=== PATIENT | female | born 1980 | race Caucasian/White ===

== ENCOUNTER 2019-03-21 06:36 | Day surgery (SDC) | payer OTHER, SELFPAY ==
[2019-03-19 08:01] VITALS: BMI 35.6
[2019-03-21] VITALS (19 sets, daily range): BP systolic 97–144; BP diastolic 37–88; PULSE 58–95; RESP 12–26; TEMP 36.3–37.1; O2SAT 95–100; BMI 35.6
--- NOTE | 2019-03-21 | PATH_ITS ---
[facility] Accession Number: [id number] . 01 Material submitted: . uterus - UTERUS AND BILATERAL FALLOPIAN TUBES . 02 Diagnosis: Uterus and Bilateral Fallopian Tubes, Supracervical Hysterectomy and Bilateral Salpingectomy: Proliferative endometrium with no diagnostic abnormality. Myometrium with no diagnostic abnormality. Bilateral fimbriated fallopian tubes with simple benign paratubal cysts. No evidence of neoplasm. MRV 03/25/2019 1312 Local . 02 Electronically signed: . Frederick Denise MD, PhD, Pathologist NPI- [id number] . 01 Gross description: . Received in formalin, labeled uterus + bilateral fallopian tubes, is an upper uterine body in multiple pieces (46 grams, 6.5 x 5.4 x 3.0 cm in aggregate) and two detached fimbriated fallopian tubes (tube #1: length-4.7 cm, diameter-0.4 cm; tube #2: length-5.5 cm, diameter-0.3 cm). The cervix and ovaries are absent. The specimen cannot be oriented and the endometrium and myometrium cannot be grossly measured. The parenchyma is mack and unremarkable. The serosa is pale mack smooth and shiny. The fallopian tubes have mack-zamorano smooth shiny serosa and mack unremarkable lumens. Section code: (A1-A4) uterine parenchyma, client service representative; (A5) fallopian tube #1, client service representative serial sections; (A6) fimbria #1, bivalved, entirely submitted; (A7)fallopian tube #2, client service representative serial sections; (A8) fimbria #2, bivalved, entirely submitted. ([id number]) /MRV 03/22/2019 1341 Local . 02 Pathologist provided ICD-10: N92.0, N94.6 . 02 [facility] . [id number] Performed at: 01 [facility] [address] [id number] MD Erick Davidson MD Phone: [phone] Performed at: 02 [facility] [address] [place], [place] [id number] MD Carin Gilman MD Phone: [phone]
--- NOTE | 2019-03-21 07:46 | PM.PREOP ---
Pre-operative Note Interval Note History & Physical reviewed/Exam performed by Physician: Yes Changes to H&P: No
[2019-03-21] MEDS: CEFAZOLIN 2 GM/100 ML FROZ.PIGGY IV (08:06)
--- NOTE | 2019-03-21 08:47 | SUR.OPER ---
Lithotomy on padded OR bed. [place] Pad Positioner under torso. Head on pillow, arms padded and tucked at sides. Legs secured in padded yellow fins stirrups.
[2019-03-21] MEDS: BUPIVACAINE 0.5% W/ EPI (PF) VIAL 30 ML INJ (09:07)
[2019-03-21] MEDS: ROPIVACAINE 0.2% PF 2 MG/ML 10ML AMP 10 ML INJ (09:08)
[2019-03-21] MEDS: LACTATED RINGERS 1,000 ML 42 ML IV (09:52)
[2019-03-21] MEDS: LORazepam 2 MG/ML INJ 0.25 MG IV ×4 (10:09→10:37)
[2019-03-21] MEDS: HYDROMORPHONE 2 MG INJ 0.25 MG IV ×4 (10:10→10:39)
[2019-03-21] MEDS: fentaNYL 100 MCG/2 ML INJ 50 MCG IV ×2 (10:16→10:24)
--- NOTE | 2019-03-21 10:47 | SUR.PHASEI ---
Patient arrived in PACU crying and complaining of 10/10 pain. Dressing site is CDI
--- NOTE | 2019-03-21 11:10 | SUR.OPER ---
SOFTBALL SIZED BRUISE LEFT THIGH NOTED PREOPERATIVELY. LATE ENTRY
[2019-03-21] MEDS: LACTATED RINGERS 1,000 ML 100 ML IV (12:02)
[2019-03-21] MEDS: HYDROMORPHONE 2 MG TABLET PO ×4 (12:06→21:17)
--- NOTE | 2019-03-21 13:59 | PC.NURSE ---
Addendum entered by Patricia Torres R.N. 03/21/19 14:44: PAIN/ - per call from Dr. Grey, no holder, order cancelled, continue with po dilaudid, may give a little early, pt abd discomfort now 5 on scale 0/10, appears less restless and anxious at this time, given 2mg po dilaudid. Addendum entered by Patricia Torres R.N. 03/21/19 14:14: PAIN/ - msg left with Dr. Grey's RN re pain management and the order for holder. Addendum entered by Patricia Torres R.N. 03/21/19 14:03: Original Note: POST OP ARRIVAL 1200 - arrived via [place], pt is anxious and tearful, wincing with touch or movement, abd cramping discomfort and vaginal burning sensation 6-7 on scale 0/10, denies nausea , 2x2 w/op site x4, lower abd, pelvic does have some shadow drainage, no leakage, per PRODUCT MANAGEMENT INTERN, an in/out cath was performed prior to tsf w/200 ml, started with ice chips and when alert and safe to swallow, given 2mg po dilaudid, later pt able to tsf to bsc and voided 600ml yellow, cloudy urine, ret to bed, scd on, LR at 100/hr.
--- NOTE | 2019-03-21 15:34 | PM.GYNOP.1 ---
Operative Date/Time/Diagnoses Date of procedure: 03/21/19 Time of procedure: 10:15 Pre-op diagnosis: Menorrhagia Dysmenorrhea Post-op diagnosis: same Procedure & Clinicians Procedure: Procedures Operation Date: 03/21/19 07:45 Actual Procedures Side Surgeon p Laparoscopic Supracervical Hysterectomy w/bilateral salpingectomy Not Applicable Araceli Grey MD Indications: Menorrhagia Dysmenorrhea Surgeon: Araceli Grey Concrete Hopper Operator: Jersey Ramires Anesthesia Type: General Operative Notes Findings: 10 week size uterus Normal tubes and ovaries Closure Type: primary Specimen(s): left tube, right tube and uterus Applied: catheter (Removed at the end of the case) Estimated blood loss (mL): 75 Blood products transfused: none Procedure in detail: The patient was taken to the operating room where she was placed in the dorsal supine position. After adequate general endotracheal anesthesia was achieved, she was placed in the dorsal lithotomy position, and prepped and draped in the usual sterile fashion. A timeout was performed. A bivalve speculum was placed into the vagina and the anterior lip of the cervix grasped with a single-tooth tenaculum. The cervical os was sequentially dilated until the ZUMI uterine manipulator could pass easily into the endometrial cavity. The single-tooth tenaculum was removed from the anterior lip of the cervix, and the bivalve speculum was removed from the vagina. Attention was then turned to the abdomen where 6 mL of half percent Marcaine with epinephrine were injected in the umbilical fold. A 5 mm incision was made. The long Verhees needle was placed into the peritoneal cavity, and its placement confirmed by aspiration and drop test. The Verhees needle was removed. A 5 mm trocar was placed without difficulty. 2 other incisions were made midway between the pubic symphysis and umbilicus after 5 mL of half percent Marcaine with epinephrine were injected. These were 5 mm incisions. Two lawn 5 mm trochars were placed under direct visualization. The right tube was grasped with an atraumatic grasper. Using the plasma kinetic with settings of 40 W the mesosalpinx was cauterized and cut all the way down to the cornua of the uterus. The cornua of the uterus was then grasped with an atraumatic grasper. The utero-ovarian ligaments were cauterized and cut. The round ligament and broad ligament was cauterized and cut with plasma kinetic. Hemostasis was achieved. The bladder flap was created using the plasma kinetic with cautery and cut skilled nursing across. The uterine arteries on the right side were extensively cauterized with plasma kinetic. All of this was repeated on the left side. The remainder of the bladder flap was created using the plasma kinetic, and the bladder taken down off the lower uterine segment and cervix. Using the Endoloop, the cervix was amputated from the uterus 2 cm above the uterosacral ligaments, after the ZUMI uterine manipulator was removed from the uterus. There was a small amount of bleeding noted from the posterior edge of the cervix, and this was cauterized for hemostasis. A sponge stick was placed into the vagina. 6 mL of half percent Marcaine with epinephrine were injected above the pubic symphysis. A 12 mm trocar was placed and then removed. An Endobag was placed through the suprapubic incision and the uterus placed into the Endobag. The Duy was placed into the endobag. The uterus was hand morcellated in approximately 5 pieces. The Endobag was removed from the peritoneal cavity. The pelvis was copiously irrigated with warm normal saline. No bleeding was noted. 20 cc of 0.2% ropivacaine were placed over the pedicles. The instruments are removed from the abdomen. The CO2 was allowed to escape. The suprapubic incision was closed on the fascia with 0 Vicryl. All of the incisions were closed with 4-0 Biosyn in a subcuticular fashion. The moistened sponge stick was removed from the vagina. Sponge, lap, and instrument counts were correct x-2. The patient tolerated the procedure well, was taken to PACU in stable condition. Complications: none Post-operative Condition: stable Disposition: PACU Plan for aftercare: Home after recovery
[2019-03-21] MEDS: SODIUM CHLORIDE 0.9% 1,000 ML 100 ML IV (17:57)
[2019-03-21] MEDS: KETOROLAC 30 MG/ML VIAL IV (18:39)
[2019-03-21] MEDS: DOCUSATE 250 MG CAPSULE PO (21:18)
[2019-03-22 00:34] VITALS: BP 120/70; PULSE 113; RESP 113; TEMP 36.7; O2SAT 97
[2019-03-22] MEDS: HYDROMORPHONE 2 MG TABLET PO ×3 (00:35→06:42)
[2019-03-22] MEDS: KETOROLAC 30 MG/ML VIAL IV (00:37)
[2019-03-22 03:05] VITALS: BP 121/68; PULSE 88; RESP 20; TEMP 36.4; O2SAT 94
[2019-03-22] MEDS: SODIUM CHLORIDE 0.9% 1,000 ML 100 ML IV (03:22)
[2019-03-22 06:20] LABS: Add Manual Diff / Slide Review NO; Basophils Absolute Auto 0 /uL (0-100); Basophils Percent Auto 0.3 % (0-2); Eosinophils Absolute Auto 0 /uL (0-450); Hematocrit 37.9 % (36-46); Hemoglobin 12.6 g/dL (12.0-16.0); Lymphocytes Absolute Auto 1300 /uL (1100-4500); Lymphocytes Percent Auto 10.9 % (25-40); Mean Corpuscular HGB Conc 33.2 % (30-36); Mean Corpuscular Hemoglobin 30.6 PG (26-34); Mean Corpuscular Volume 92.2 fL (80-100); Monocytes Absolute Auto 900 /uL (0-900); Monocytes Percent Auto 7.7 % (3-14); Neutrophils Absolute Auto 9300 /uL (1500-7000); Neutrophils Percent Auto 81.1 % (50-75); Platelet Count 176 X10^3/uL (150-400); Red Blood Cell Count 4.11 X10^6/uL (4.0-5.2); Red Cell Distribution Width 12.8 % (11.6-14.8); White Blood Cell Count 11.5 X10^3/uL (4.5-11.0)
--- NOTE | 2019-03-22 07:11 | P.DS_ITS ---
History of Present Illness History of Present Illness Date Patient Seen: 03/22/19 Time Patient Seen: 07:10 Chief complaint: *OPB* [id number] Narrative: Patient is postoperative day 1 status post laparoscopic supracervical hysterectomy for menorrhagia. Patient was having a lot of discomfort from gas pains but now is passing gas and is feeling much better. She has no nausea. She is urinating without difficulty and ambulatory. Discharge Providers Provider Discharge Date: 03/22/19 Primary care physician: MARISA To Discharge provider: Kayla Gifford MD Summary Hospital Course Discharge Diagnosis: Menorrhagia post laparoscopic supracervical hysterectomy Hospital Course: Patient underwent a laparoscopic supracervical hysterectomy on 03/21/2019. She was unable to be discharged on the same day due to problems with pain control. She is now feeling much better, passing gas, urinating and ambulating well. No nausea. Status at Discharge Cognitive/behavioral status at discharge: oriented Functional status at discharge: independent ambulation Overall status at discharge: patient is progressing back to baseline Time Spent with Patient Time spent: Less than 30 minutes Exam Vital Signs (past 8 hours): - 03/22/19 00:34 03/22/19 03:05 Temperature 98.0 F 97.5 F L Pulse Rate 113 H 88 Respiratory Rate 113 H 20 Blood Pressure 120/70 121/68 Pulse Oximetry 97 94 Oxygen Delivery Method Room Air Oxygen Flow Rate 0 Narrative Exam Narrative: Patient's abdomen is soft, minimally tender. Her dressings are clean, dry, intact. No vaginal bleeding. Extremities without edema and nontender. Objective Labs Result Diagrams: 03/22/19 06:00 Labs: Laboratory Results - last 24 hr 03/22/19 06:00 WBC 11.5 H RBC 4.11 Hgb 12.6 Hct 37.9 MCV 92.2 MCH 30.6 MCHC 33.2 RDW 12.8 Plt Count 176 Neut % (Auto) 81.1 H Lymph % (Auto) 10.9 L [place] % (Auto) 7.7 Eos % (Auto) 0.0 L Baso % (Auto) 0.3 Neut # (Auto) 9300 H Lymph # (Auto) 1300 [place] # (Auto) 900 Eos # (Auto) 0 Baso # (Auto) 0 Discharge Plan Discharge Plan Patient Disposition: Home Discharge comment: Call with fever, chills, redness or drainage around incisions or bleeding vaginally more than spotting Discharge Med Rec/Prescriptions Prescriptions: New hydromorphone [Dilaudid] 2 mg tablet 2 mg PO Q4H Qty: 30 RF: 0 Continued ACETAMINOPHEN 325 mg PO Q4HP PRN (Reason: Headache) Qty: 0 RF: 0 cyclobenzaprine 5 mg tablet 10 mg PO BEDTIME PRN (Reason: Headache) RF: 0 tramadol 50 mg tablet 50 mg PO BEDTIME PRN (Reason: Headache) RF: 0 Follow up/Referrals: Araceli Grey MD [Physician] - 2 Weeks Discharge Orders: Discharge (Order); Ordered 03/22/19 Ordered By: Kayla Gifford Provider Discharge Instructions Diet: Regular Skin/Wound/Dressing Care Report to your healthcare provider any signs of infection, such as:: chills, fever, increased pain, unusual drainage and unusual redness Dressing: Remove outer plastic dressings and guaze tomorrow after a shower Visit Report/Discharge Packet Instructions: DI for Hysterectomy, DI for Laparoscopy Stand Alone Forms: Surgery Discharge Discharge Data Primary Care Provider: Meghan Echols Attending Provider: Araceli Grey
[2019-03-22] MEDS: DOCUSATE 250 MG CAPSULE PO (09:07)
--- NOTE | 2019-03-22 09:43 | PC.NURSE ---
AM shift pt AO, pleasant, and receptive to care. C/O 11/26 pelvic pain and spasms. Administered 2mg Dilaudid PO and reporting 09/26. No vaginal bleeding noted from pt. LR infusing in right arm PIV. DC'ed PIV for discharge. All personal items packed up. Provided prescriptions to patient. Transported pt to private vehicle via WC.
== END 2019-03-22 09:40 | disposition home or self-care (01) ==
LOC: OR 06:42 → AC 06:44
PROVIDERS: PCP Nurse Practitioner Family; Visit Provider Obstetrics & Gynecology
PROC: 0UT94ZL Resection of Uterus, Supracervical, Percutaneous Endoscopic Approach (ICD-10-PCS; CPT 58542; principal; 2019-03-21 07:45)
DX: N92.0 Excessive and frequent menstruation with regular cycle (principal); N94.6 Dysmenorrhea, unspecified
CPT/HCPCS: 58542; 36415; 85025; J0690; J1100; J1170; J1885; J2060; J2250; J2704; J2765; J2795; J3010

== ENCOUNTER 2020-05-28 09:45 | Outpatient (RCR) | payer OTHER, SELFPAY ==
[2019-03-21 12:47] VITALS: BMI 35.6
--- NOTE | 2020-04-09 12:15 | PT.OIE ---
Current Diagnoses Scar conditions and fibrosis of skin (04/07/20) Pelvic and perineal pain (04/07/20) Other specified postprocedural states (04/07/20) Past Medical History (Last Updated 03/19/19 @ 08:11 by Henny Barrow RN) Acid reflux (Acute) Atypical chest pain (Acute ~2015) Miscarriage (Acute) Superficial thrombophlebitis of left upper extremity (Acute ~2012) Past Surgical History (Last Updated 04/14/19 @ 19:27 by Araceli Grey MD) H/O bilateral salpingectomy (Acute ~03/21/19) S/P laparoscopic supracervical hysterectomy (Acute ~03/21/19) S/P T&A (status post tonsillectomy and adenoidectomy) (Chronic) [place] teeth extracted (Chronic) Visit Care Team Role Provider Type MARISA To Primary Care Provider Non-Staff Specialty: Family Practice Address: [address] [place] [address], [facility] Fax: Email: Araceli Grey MD Attending Provider Physician Referring Provider Specialty: MACHINE BANDER AND CELLOPHANER HELPER Address: [address] [place] [address], [id number] Email: [email or web address] Physical Therapy Initial Evaluation PT-OP-A Visit Information Start: 04/07/20 11:20 Freq: Status: Active Protocol: Document 04/07/20 11:15 [facility] (Rec: 04/08/20 14:13 [facility] [id number]) Out-Patient Physical Therapy Visit Information Visit Information Visit Type Initial Evaluation Visit Start Time 11:15 Visit Stop Time 12:00 Total Visit Minutes 45 Visit Number 1 Evaluation Information Evaluation Date 04/07/20 PT-OP-B Current Condition Start: 04/07/20 11:20 Freq: Status: Active Protocol: Document 04/07/20 11:21 [facility] (Rec: 04/07/20 11:33 [facility] [id number]) Current Condition History of Current Condition Onset Date July 2019 Current Complaints pelvic pain and pain across the lower part of the abdominal wall History of Current Condition Heather is a 39 year old female who underwent a laparoscopic supracervical hysterectomy with bilateral salpingectomy March 22 2019. This was done due to severe dysmenorrhea and menorrhagia. In July she started having pain on the left and it felt like things were going to fall out. She had started working out and she thought maybe she pulled something. The pain went away but then comes and goes. Last episode the pain lasted two weeks, it is predominately in the left groin although sometimes can progress to the right side. Sometimes it is so bad that I can't move. She feels a pulling type of pain and that things are going to fall out. She constantly feels like she needs to void, after she voids she feels like she has to go again about 10 minutes later. It was squatting exercises when she started noticing that she was having pressure. Past medical history includes 3 miscarriages, acid reflus, Atypical chest pain Acute 2015 , superficial thrombophlebitis of the left UE 2012 Treatment Goals Patient/Caregiver Goals Heather's goals include decreasing pain across the abdominal wall and pelvis Prior Functional Status Baseline Function- ADL's Independent Current Functional Impairments (Reported) Functional Limitations- ADL's when the pain is at its worst Heather reports she is unable to move and it restricts her activity Functional Limitations- Other pain at night, she feels as if she needs to put pressure over her abdominal wall at night PT-OP-F Manual Assessment Start: 04/07/20 11:20 Freq: Status: Active Protocol: Document 04/07/20 11:15 [facility] (Rec: 04/09/20 11:31 [facility] [id number]) Manual Assessments Soft Tissue Assessment Soft Tissue Mobility Assessment restrictions across the left side of the hysterectomy scar and over the baldder. francisca is very sensitive to touch over the scar, she is tender throughout the descending colon and there is restricted myofascial mobility PT-OP-I Pelvic Floor Start: 04/07/20 11:20 Freq: Status: Active Protocol: Document 04/07/20 11:15 [facility] (Rec: 04/08/20 14:19 [facility] [id number]) Pelvic Floor Assessment Contraction Ability Voluntary Contraction Moderate Voluntary Relaxation Moderate Manual Muscle Testing Left 4 Manual Muscle Testing Right 4 Manual Muscle Testing Anterior 4 Manual Muscle Testing Posterior 4 Comments Pelvic Floor Comments Heather is able to contract all aspects of her levator ani without pain or guarding PT-OP-J Posture/Palpation/Skin Start: 04/07/20 11:20 Freq: Status: Active Protocol: Document 04/07/20 11:15 [facility] (Rec: 04/08/20 14:23 [facility] [email or web address]) Posture Evaluation Position Standing Evaluation View Lateral Comments Posture Comments pt has a forward posture in sitting, 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 Tenderness in the medial aspect of the scar over the bladder PT-OP-K Range of Motion Start: 04/08/20 14:25 Freq: Status: Active Protocol: Document 04/07/20 11:15 [facility] (Rec: 04/08/20 14:26 [facility] [email or web address]) Hip Goniometric Range of Motion Hip ROM Limitations Hip ROM Limitations Soft Tissue Tightness Comments Iliopsoas tightness bilaterally with + holli test bilaterally PT-OP-M Strength Start: 04/07/20 11:20 Freq: Status: Active Protocol: Document 04/07/20 11:15 [facility] (Rec: 04/08/20 14:25 [facility] [email or web address]) Trunk Strength Trunk Manual Muscle Testing Flexion 3 Fair Comments Poor activation of the transverse abdominal musculature, we tried this in quadruped and it was much easier than supine. Trunk curl up does not reproduce any pain PT-OP-Q Treatments Start: 04/07/20 11:20 Freq: Status: Active Protocol: Document 04/07/20 11:15 [facility] (Rec: 04/08/20 14:28 [facility] [email or web address]) Therapeutic Exercises Supine Exercises iliopsoas stretch Supine Exercise Name supine iliopsoas stretch Side bilateral Reps/Minutes hold 1-2 minutes Other Exercises quadruped TA facilitation Other Exercise Name quadruped TA facilitation Side bilateral Reps/Minutes 10 reps working up to 10 second hold Self-Care/Home Management Treatment Education Patient Education Home Exercise Program Other Education pt was educated in desentization over the abdominal wall and self scar tissue mobilization PT-OP-T Assessment and Plan Start: 04/07/20 11:20 Freq: Status: Active Protocol: Document 04/07/20 11:15 [facility] (Rec: 04/09/20 11:36 [facility] [id number]) Physical Therapy Assessment Rehab Potential Rehabilitation Potential Good Evaluation Complexity Number of Personal Factors/Comorbidities 0 Number of Body Systems Impaired 1-2 Clinical Presentation at Evaluation Stable Impairments Impairments Activity Tolerance,Functional Activities,Pain,Posture,ROM, Soft Tissue Mobility,Strength Goals Weakness of abdominal wall Impairment Decreased core strength, weakness of the abdominal wall Short Term Goal (STG) heather is able to sustain a transverse abdominal contraction x 10 seconds in quadruped x 10 reps for improved recruitment of the transverse abdominal muscle. Hand Straightener Goal (LTG) Heather is able to demonstrate good abdominal stabilization with dynamic lumbar stabilization exercises inlcuding stabilization with ADL's and exercise. iliopsoas tightness and decreased flexibility Impairment Iliopsoas tightness and decreased flexibility B, + holli test Short Term Goal (STG) Heather is educated on a home stretching program to open up her hips and improve hip extension. STG Duration 4 weeks Longterm Goal (LTG) Heather is able to demonstrate a proper squat with good hip extension on the return from squat and safe squat mechanics . LTG Duration 8 weeks Urinary urgency and frequency Impairment Urinary urgency and frequency Short Term Goal (STG) Heather is educated on urge deference technique and bladder retraining to help decrease her urgency to void STG Duration 4 weeks pain left side of the abdominal wall and suprapubic fascia Impairment Pain rated 7/10 the left side of the abdominal scar and suprapubic fascia Longterm Goal (LTG) With scar tissue mobilization and nerve desensitization Heather notes a overall reduction in her pain levels from 7/10 to 1-3/10 LTG Duration 8 weeks Assessment Summary Assessment Heather is a 39 year old female who presents to physical therapy today with symptoms of left sided abdominal and pelvic pain that began in July 2019 following a supracervical hysterectomy with bilateral salpingectomy in March 2019. She underwent surgery due to severe dysmenorrhea and menorrhagia. This pain is intermittent with episodes that can last 1- 2 weeks. Heather describes this pain as a pulling type pain from the inside and she feels as if things are going to fall out She reports the pain is mostly on the left but occasionally it can radiate to the right. She also reports feeling frequent urgency to void. She notes she often places her hand over her stomach to give pressure to her abdominal wall and she will find her self sleeping that way. Her symptoms seemed initially to begin when she started working on a exercise routine at home that included squats and she initially thought she had pulled something doing a squat. With examination today Heather is very tender over her hysterectomy scar expecially on the left side and over her bladder. The tissue is very restricted and feels adhered. She notes pain with any movement of the suprapubic fascia. She has tightness of her iliopsoas bilaterally and it is difficult to lay fully in supine without pain. The myofascial tissue over the left descending colon is restricted and Francisca reports if she has gas or feels bloated her pain will increase. She has tried to be careful with what she is eating due to this discomfort. With pelvic floor examination she is able to facilitate all parts of her levator ani and did not have any pain to palpation. She denies any pain with intercourse. She has no pain with abdominal contraction or pelvic floor contraction. Treatment will focus on working with the scar tissue over the hysterectomy scar, MFR for the suprapubic fascia and left descending colon. She will benefit from bladder retraining and urge deference technique. I also want to start Heather on a stretching program for her iliopsoas and work on posture as well as core stability. She was taught a desensitization technique to treat nerve pain and scar sensitivity as well as a gentle massage for the colon. She tolerated treatment well today. Physical Therapy Plan Frequency and Duration Frequency of Treatment 1x/Week Duration of Treatment 8 Plan of Care Start Date 04/07/20 Plan of Care End Date 06/02/20 Therapeutic Interventions Therapeutic Interventions Home Exercise Program,Manual Therapy,Neuromuscular Re- education,Patient/Caregiver Education,Self-Care/Home Management,Soft Tissue Mobilization,Therapeutic Exercises Next Visit Focus/Plan Next Note Type Treatment Note Next Visit Plan begin gentle MFR and scar tissue work over the left side of the abdominal wall and in the suprapubic fascia
--- NOTE | 2020-04-09 12:16 | PT.OPPOC ---
Physical, Occupational & Speech Therapy At [facility] Current Diagnoses Scar conditions and fibrosis of skin (04/07/20) Pelvic and perineal pain (04/07/20) Other specified postprocedural states (04/07/20) Visit Care Team Role Provider Type MARISA To Primary Care Provider Non-Staff Specialty: Family Practice Address: [address] [address], [place], [address] Fax: Email: Araceli Grey MD Attending Provider Physician Referring Provider Specialty: MATERIALS ANALYST Address: [address] [place] [address], [id number] Email: [email or web address] Plan Of Care PT-OP-T Assessment and Plan Start: 04/07/20 11:20 Freq: Status: Active Protocol: Document 04/07/20 11:15 [facility] (Rec: 04/09/20 11:36 [facility] [id number]) Physical Therapy Assessment Rehab Potential Rehabilitation Potential Good Evaluation Complexity Number of Personal Factors/Comorbidities 0 Number of Body Systems Impaired 1-2 Clinical Presentation at Evaluation Stable Impairments Impairments Activity Tolerance,Functional Activities,Pain,Posture,ROM, Soft Tissue Mobility,Strength Goals Weakness of abdominal wall Impairment Decreased core strength, weakness of the abdominal wall Short Term Goal (STG) Heather is able to sustain a transverse abdominal contraction x 10 seconds in quadruped x 10 reps for improved recruitment of the transverse abdominal muscle. Agronomy Technician Goal (LTG) Heather is able to demonstrate good abdominal stabilization with dynamic lumbar stabilization exercises including stabilization with ADL's and exercise. iliopsoas tightness and decreased flexibility Impairment Iliopsoas tightness and decreased flexibility B, + holli test Short Term Goal (STG) Heather is educated on a home stretching program to open up her hips and improve hip extension. STG Duration 4 weeks Agronomy Technician Goal (LTG) Heather is able to demonstrate a proper squat with good hip extension on the return from squat and safe squat mechanics LTG Duration 8 weeks Urinary urgency and frequency Impairment Urinary urgency and frequency Short Term Goal (STG) Heather is educated on urge deference technique and bladder retraining to help decrease her urgency to void STG Duration 4 weeks pain left side of the abdominal wall and suprapubic fascia Impairment Pain rated 7/10 the left side of the abdominal scar and suprapubic fascia Agronomy Technician Goal (LTG) With scar tissue mobilization and nerve desensitization Heather notes a overall reduction in her pain levels from 7/10 to 1-3/10 LTG Duration 8 weeks Assessment Summary Assessment Heather is a 39 year old female who presents to physical therapy today with symptoms of left sided abdominal and pelvic pain that began in July 2019 following a supracervical hysterectomy with bilateral salpingectomy in March 2019. She underwent surgery due to severe dysmenorrhea and menorrhagia. This pain is intermittent with episodes that can last 1- 2 weeks. Heather describes this pain as a pulling type pain from the inside and she feels as if things are going to fall out She reports the pain is mostly on the left but occasionally it can radiate to the right. She also reports feeling frequent urgency to void. She notes she often places her hand over her stomach to give pressure to her abdominal wall and she will find her self sleeping that way. Her symptoms seemed initially to begin when she started working on a exercise routine at home that included squats and she initially thought she had pulled something doing a squat. With examination today Heather is very tender over her hysterectomy scar especially on the left side and over her bladder. The tissue is very restricted and feels adhered. She notes pain with any movement of the suprapubic fascia. She has tightness of her iliopsoas bilaterally and it is difficult to lay fully in supine without pain. The myofascial tissue over the left descending colon is restricted and Khadijah reports if she has gas or feels bloated her pain will increase. She has tried to be careful with what she is eating due to this discomfort. With pelvic floor examination she is able to facilitate all parts of her levator ani and did not have any pain to palpation. She denies any pain with intercourse. She has no pain with abdominal contraction or pelvic floor contraction. Treatment will focus on working with the scar tissue over the hysterectomy scar, MFR for the suprapubic fascia and left descending colon. She will benefit from bladder retraining and urge deference technique. I also want to start Heather on a stretching program for her iliopsoas and work on posture as well as core stability. She was taught a desensitization technique to treat nerve pain and scar sensitivity as well as a gentle massage for the colon. She tolerated treatment well today. Physical Therapy Plan Frequency and Duration Frequency of Treatment 1x/Week Duration of Treatment 8 Plan of Care Start Date 04/07/20 Plan of Care End Date 06/02/20 Therapeutic Interventions Therapeutic Interventions Home Exercise Program,Manual Therapy,Neuromuscular Re- education,Patient/Caregiver Education,Self-Care/Home Management,Soft Tissue Mobilization,Therapeutic Exercises Next Visit Focus/Plan Next Note Type Treatment Note Next Visit Plan begin gentle MFR and scar tissue work over the left side of the abdominal wall and in the suprapubic fascia Plan of Care Dates Plan of Care Start Date 04/07/20 Plan of Care End Date 06/02/20 Electronically Signed by: Indira Louise, PT 04/09/20 [id number] Please Sign and Return: I have reviewed this Plan of Care and certify that the skilled therapy services above are required to meet the patient?s needs. Physician Signature Date Printed Name and Credentials Clinical Instructor Signature Printed Name and Credentials
--- NOTE | 2020-04-19 15:18 | PT.OTN ---
Current Diagnoses Scar conditions and fibrosis of skin (04/16/20) Pelvic and perineal pain (04/16/20) Other specified postprocedural states (04/16/20) Physical Therapy Treatment Note PT-OP-A Visit Information Start: 04/07/20 11:20 Freq: Status: Active Protocol: Document 04/16/20 09:49 [facility] (Rec: 04/16/20 09:53 [facility] [id number]) Out-Patient Physical Therapy Visit Information Visit Information Visit Type Treatment Note Visit Start Time 09:50 Visit Stop Time 10:35 Total Visit Minutes 42 PT-OP-B Current Condition Start: 04/07/20 11:20 Freq: Status: Active Protocol: Document 04/07/20 11:21 [facility] (Rec: 04/07/20 11:33 [facility] [id number]) Current Condition History of Current Condition Onset Date July 2019 Current Complaints pelvic pain and pain across the lower part of the abdominal wall History of Current Condition Heather is a 39 year old female who underwent a laparoscopic supracervical hysterectomy with bilateral salpingectomy March 22 2019. This was done due to severe dysmenorrhea and menorrhagia. In July she started having pain on the left and it felt like things were going to fall out. She had started working out and she thought maybe she pulled something. The pain went away but then comes and goes. Last episode the pain lasted two weeks, it is predominately in the left groin although sometimes can progress to the right side. Sometimes it is so bad that I can't move. She feels a pulling type of pain and that things are going to fall out. She constantly feels like she needs to void, after she voids she feels like she has to go again about 10 minutes later. It was squatting exercises when she started noticing that she was having pressure. Past medical history includes 3 miscarriages, acid reflus, Atypical chest pain Acute 2015 , superficial thrombophlebitis of the left UE 2012 Treatment Goals Patient/Caregiver Goals Heather's goals include decreasing pain across the abdominal wall and pelvis Prior Functional Status Baseline Function- ADL's Independent Current Functional Impairments (Reported) Functional Limitations- ADL's when the pain is at its worst Heather reports she is unable to move and it restricts her activity Functional Limitations- Other pain at night, she feels as if she needs to put pressure over her abdominal wall at night PT-OP-C Subjective Start: 04/07/20 11:20 Freq: Status: Active Protocol: Document 04/16/20 09:49 [facility] (Rec: 04/16/20 09:53 [facility] [id number]) OP-PT Subjective Patient Comments Patient Comments Pt notes she was in a intense amount of pain trying to do the desintization, she is getting used to doing it but the pain hasn't changed. PT-OP-F Manual Assessment Start: 04/07/20 11:20 Freq: Status: Active Protocol: Document 04/07/20 11:15 [facility] (Rec: 04/09/20 11:31 [facility] [id number]) Manual Assessments Soft Tissue Assessment Soft Tissue Mobility Assessment restrictions across the left side of the hysterectomy scar and over the baldder. francisca is very sensitive to touch over the scar, she is tender throughout the descending colon and there is restricted myofascial mobility PT-OP-I Pelvic Floor Start: 04/07/20 11:20 Freq: Status: Active Protocol: Document 04/07/20 11:15 [facility] (Rec: 04/08/20 14:19 [facility] [email or web address]) Pelvic Floor Assessment Contraction Ability Voluntary Contraction Moderate Voluntary Relaxation Moderate Manual Muscle Testing Left 4 Manual Muscle Testing Right 4 Manual Muscle Testing Anterior 4 Manual Muscle Testing Posterior 4 Comments Pelvic Floor Comments Heather is able to contract all aspects of her levator ani without pain or guarding PT-OP-J Posture/Palpation/Skin Start: 04/07/20 11:20 Freq: Status: Active Protocol: Document 04/07/20 11:15 [facility] (Rec: 04/08/20 14:23 [facility] [email or web address]) Posture Evaluation Position Standing Evaluation View Lateral Comments Posture Comments pt has a forward posture in sitting, 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 Tenderness in the medial aspect of the scar over the bladder PT-OP-K Range of Motion Start: 04/08/20 14:25 Freq: Status: Active Protocol: Document 04/07/20 11:15 [facility] (Rec: 04/08/20 14:26 [facility] [email or web address]) Hip Goniometric Range of Motion Hip ROM Limitations Hip ROM Limitations Soft Tissue Tightness Comments Iliopsoas tightness bilaterally with + holli test bilaterally PT-OP-M Strength Start: 04/07/20 11:20 Freq: Status: Active Protocol: Document 04/07/20 11:15 [facility] (Rec: 04/08/20 14:25 [facility] [email or web address]) Trunk Strength Trunk Manual Muscle Testing Flexion 3 Fair Comments Poor activation of the transverse abdominal musculature, we tried this in quadruped and it was much easier than supine. Trunk curl up does not reproduce any pain PT-OP-Q Treatments Start: 04/07/20 11:20 Freq: Status: Active Protocol: Document 04/16/20 09:45 [facility] (Rec: 04/19/20 15:14 [facility] [email or web address]) Therapeutic Exercises Supine Exercises diaphragmatic breathing Supine Exercise Name diaphragmatic breathing Reps/Minutes breath in for 4 pause for 4 exhale for 4 iliopsoas stretch Supine Exercise Name supine iliopsoas stretch Side bilateral Reps/Minutes hold 1-2 minutes Other Exercises quadruped rock back Other Exercise Name quadruped rock backs Reps/Minutes x 10 reps cat cow Other Exercise Name cat cow Reps/Minutes x 10 reps quadruped TA facilitation Other Exercise Name quadruped TA facilitation Side bilateral Reps/Minutes 10 reps working up to 10 second hold PT-OP-R Modalities Start: 04/19/20 15:14 Freq: Status: Active Protocol: Document 04/16/20 09:45 [facility] (Rec: 04/19/20 15:15 [facility] [email or web address]) Ultrasound Therapy Treatment abdominal wall over hysterectomy scar Treatment Duration (minutes) 8 Patient Position Supine Coupling Medium Ultrasound Gel Applicator Size (cm2) 5 Mode Setting Continuous Duty Cycle 100% Intensity Setting (w/cm2) 1.5 PT-OP-T Assessment and Plan Start: 04/07/20 11:20 Freq: Status: Active Protocol: Document 04/16/20 09:45 [facility] (Rec: 04/19/20 15:14 [facility] [email or web address]) Physical Therapy Assessment Assessment Summary Assessment Heather is very tender to palpation over her scar tissue . I worked on scar tissue release to her tolerance today . She did experience some cramping symptoms after gentle scar and MFR work. She was educated in diaphragmatic breathing and specific yoga positions to try and relax the abdominal wall. Physical Therapy Plan Frequency and Duration Frequency of Treatment 1x/Week Duration of Treatment 8 Plan of Care Start Date 04/07/20 Plan of Care End Date 06/02/20 Therapeutic Interventions Therapeutic Interventions Home Exercise Program,Manual Therapy,Neuromuscular Re- education,Patient/Caregiver Education,Self-Care/Home Management,Soft Tissue Mobilization,Therapeutic Exercises Next Visit Focus/Plan Next Note Type Treatment Note Next Visit Plan continue working on scar release and progress abdominal strengthening and pelvic and lumbar mobility, iliopsoas stretching
--- NOTE | 2020-04-21 17:56 | PT.OTN ---
Current Diagnoses Scar conditions and fibrosis of skin (04/21/20) Pelvic and perineal pain (04/21/20) Other specified postprocedural states (04/21/20) Physical Therapy Treatment Note PT-OP-A Visit Information Start: 04/07/20 11:20 Freq: Status: Active Protocol: Document 04/21/20 08:58 [facility] (Rec: 04/21/20 09:54 [facility] [id number]) Out-Patient Physical Therapy Visit Information Visit Information Visit Type Re-Evaluation Visit Start Time 09:00 Visit Stop Time 09:45 Total Visit Minutes 45 Visit Number 3 PT-OP-B Current Condition Start: 04/07/20 11:20 Freq: Status: Active Protocol: Document 04/07/20 11:21 [facility] (Rec: 04/07/20 11:33 [facility] [id number]) Current Condition History of Current Condition Onset Date July 2019 Current Complaints pelvic pain and pain across the lower part of the abdominal wall History of Current Condition Heather is a 39 year old female who underwent a laparoscopic supracervical hysterectomy with bilateral salpingectomy March 22 2019. This was done due to severe dysmenorrhea and menorrhagia. In July she started having pain on the left and it felt like things were going to fall out. She had started working out and she thought maybe she pulled something. The pain went away but then comes and goes. Last episode the pain lasted two weeks, it is predominately in the left groin although sometimes can progress to the right side. Sometimes it is so bad that I can't move. She feels a pulling type of pain and that things are going to fall out. She constantly feels like she needs to void, after she voids she feels like she has to go again about 10 minutes later. It was squatting exercises when she started noticing that she was having pressure. Past medical history includes 3 miscarriages, acid reflus, Atypical chest pain Acute 2015 , superficial thrombophlebitis of the left UE 2012 Treatment Goals Patient/Caregiver Goals Heather's goals include decreasing pain across the abdominal wall and pelvis Prior Functional Status Baseline Function- ADL's Independent Current Functional Impairments (Reported) Functional Limitations- ADL's when the pain is at its worst Heather reports she is unable to move and it restricts her activity Functional Limitations- Other pain at night, she feels as if she needs to put pressure over her abdominal wall at night PT-OP-C Subjective Start: 04/07/20 11:20 Freq: Status: Active Protocol: Document 04/21/20 08:58 [facility] (Rec: 04/21/20 09:54 [facility] [id number]) OP-PT Subjective Patient Comments Patient Comments Heather reports she had pain the whole weekend but notes today she doesn't have as much tenderness on the left side of the abdominal wall. She would like to try tape today. Patient Reported Progress Same PT-OP-F Manual Assessment Start: 04/07/20 11:20 Freq: Status: Active Protocol: Document 04/07/20 11:15 [facility] (Rec: 04/09/20 11:31 [facility] [id number]) Manual Assessments Soft Tissue Assessment Soft Tissue Mobility Assessment restrictions across the left side of the hysterectomy scar and over the baldder. francisca is very sensitive to touch over the scar, she is tender throughout the descending colon and there is restricted myofascial mobility PT-OP-I Pelvic Floor Start: 04/07/20 11:20 Freq: Status: Active Protocol: Document 04/07/20 11:15 [facility] (Rec: 04/08/20 14:19 [facility] [email or web address]) Pelvic Floor Assessment Contraction Ability Voluntary Contraction Moderate Voluntary Relaxation Moderate Manual Muscle Testing Left 4 Manual Muscle Testing Right 4 Manual Muscle Testing Anterior 4 Manual Muscle Testing Posterior 4 Comments Pelvic Floor Comments Heather is able to contract all aspects of her levator ani without pain or guarding PT-OP-J Posture/Palpation/Skin Start: 04/07/20 11:20 Freq: Status: Active Protocol: Document 04/07/20 11:15 [facility] (Rec: 04/08/20 14:23 [facility] [email or web address]) Posture Evaluation Position Standing Evaluation View Lateral Comments Posture Comments pt has a forward posture in sitting, 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 Tenderness in the medial aspect of the scar over the bladder PT-OP-K Range of Motion Start: 04/08/20 14:25 Freq: Status: Active Protocol: Document 04/07/20 11:15 [facility] (Rec: 04/08/20 14:26 [facility] [email or web address]) Hip Goniometric Range of Motion Hip ROM Limitations Hip ROM Limitations Soft Tissue Tightness Comments Iliopsoas tightness bilaterally with + holli test bilaterally PT-OP-M Strength Start: 04/07/20 11:20 Freq: Status: Active Protocol: Document 04/07/20 11:15 [facility] (Rec: 04/08/20 14:25 [facility] [email or web address]) Trunk Strength Trunk Manual Muscle Testing Flexion 3 Fair Comments Poor activation of the transverse abdominal musculature, we tried this in quadruped and it was much easier than supine. Trunk curl up does not reproduce any pain PT-OP-Q Treatments Start: 04/07/20 11:20 Freq: Status: Active Protocol: Document 04/21/20 08:58 [facility] (Rec: 04/21/20 09:54 [facility] [id number]) Therapeutic Exercises Supine Exercises diaphragmatic breathing Supine Exercise Name diaphragmatic breathing Reps/Minutes breath in for 4 pause for 4 exhale for 4 iliopsoas stretch Supine Exercise Name supine iliopsoas stretch Side bilateral Reps/Minutes hold 1-2 minutes Other Exercises quadraped thoracic rotation Reps/Minutes 10 reps quadraped sidebends Reps/Minutes x 10 reps Comments pt had a onset of left sided abdominal nerve symptoms quadruped rock back Other Exercise Name quadruped rock backs Reps/Minutes x 10 reps cat cow Other Exercise Name cat cow Reps/Minutes x 10 reps quadruped TA facilitation Other Exercise Name quadruped TA facilitation Side bilateral Reps/Minutes 10 reps working up to 10 second hold Manual Therapy Treatment Soft Tissue Mobilization visceral mobilization over the bladder Body Location visceral mobilization over the bladder ILU massage over the colon Body Location abdominal wall 1 Body Location scar tissue mobilization over the left side of lower abdominal incision Taping 1 Body Location left lower abdominal wall Type of Tape Kinesio Tape Comments kinestio tape in a fan pattern was used over the lower abdominal wall to help reduce edema and swelling PT-OP-R Modalities Start: 04/19/20 15:14 Freq: Status: Active Protocol: Document 04/16/20 09:45 [facility] (Rec: 04/19/20 15:15 [facility] [email or web address]) Ultrasound Therapy Treatment abdominal wall over hysterectomy scar Treatment Duration (minutes) 8 Patient Position Supine Coupling Medium Ultrasound Gel Applicator Size (cm2) 5 Mode Setting Continuous Duty Cycle 100% Intensity Setting (w/cm2) 1.5 PT-OP-T Assessment and Plan Start: 04/07/20 11:20 Freq: Status: Active Protocol: Document 04/21/20 08:58 [facility] (Rec: 04/21/20 09:54 [facility] [id number]) Physical Therapy Assessment Assessment Summary Assessment with sidebends left Heather would feel the reproduction of pain on the left side of her abdominal wall. It feels like nerve entrapement to me. I will assess her response to the tape next visit. Physical Therapy Plan Frequency and Duration Frequency of Treatment 1x/Week Duration of Treatment 8 Plan of Care Start Date 04/07/20 Plan of Care End Date 06/02/20 Therapeutic Interventions Therapeutic Interventions Home Exercise Program,Manual Therapy,Neuromuscular Re- education,Patient/Caregiver Education,Self-Care/Home Management,Soft Tissue Mobilization,Therapeutic Exercises
--- NOTE | 2020-04-28 11:49 | PT.OTN ---
Current Diagnoses Scar conditions and fibrosis of skin (04/28/20) Pelvic and perineal pain (04/28/20) Other specified postprocedural states (04/28/20) Physical Therapy Treatment Note PT-OP-A Visit Information Start: 04/07/20 11:20 Freq: Status: Active Protocol: Document 04/28/20 08:59 [facility] (Rec: 04/28/20 09:08 [facility] [id number]) Out-Patient Physical Therapy Visit Information Visit Information Visit Type Progress Note Visit Start Time 09:00 Visit Stop Time 09:45 Total Visit Minutes 45 Visit Number 4 Evaluation Information Evaluation Date 04/07/20 PT-OP-B Current Condition Start: 04/07/20 11:20 Freq: Status: Active Protocol: Document 04/07/20 11:21 [facility] (Rec: 04/07/20 11:33 [facility] [id number]) Current Condition History of Current Condition Onset Date July 2019 Current Complaints pelvic pain and pain across the lower part of the abdominal wall History of Current Condition Heather is a 39 year old female who underwent a laparoscopic supracervical hysterectomy with bilateral salpingectomy March 22 2019. This was done due to severe dysmenorrhea and menorrhagia. In July she started having pain on the left and it felt like things were going to fall out. She had started working out and she thought maybe she pulled something. The pain went away but then comes and goes. Last episode the pain lasted two weeks, it is predominately in the left groin although sometimes can progress to the right side. Sometimes it is so bad that I can't move. She feels a pulling type of pain and that things are going to fall out. She constantly feels like she needs to void, after she voids she feels like she has to go again about 10 minutes later. It was squatting exercises when she started noticing that she was having pressure. Past medical history includes 3 miscarriages, acid reflus, Atypical chest pain Acute 2015 , superficial thrombophlebitis of the left UE 2012 Treatment Goals Patient/Caregiver Goals Heather's goals include decreasing pain across the abdominal wall and pelvis Prior Functional Status Baseline Function- ADL's Independent Current Functional Impairments (Reported) Functional Limitations- ADL's when the pain is at its worst Heather reports she is unable to move and it restricts her activity Functional Limitations- Other pain at night, she feels as if she needs to put pressure over her abdominal wall at night PT-OP-C Subjective Start: 04/07/20 11:20 Freq: Status: Active Protocol: Document 04/28/20 11:31 [facility] (Rec: 04/28/20 11:36 [facility] [email or web address]) OP-PT Subjective Patient Comments Patient Comments Heather reports she is still feeling the left side pain, the intensity of the pain has not changed. She feels like maybe she is feeling overall a little better as she has been stretching. She also reports having a alerigic reaction to the kinesiotape last visit. Patient Reported Progress Same PT-OP-F Manual Assessment Start: 04/07/20 11:20 Freq: Status: Active Protocol: Document 04/07/20 11:15 [facility] (Rec: 04/09/20 11:31 [facility] [id number]) Manual Assessments Soft Tissue Assessment Soft Tissue Mobility Assessment restrictions across the left side of the hysterectomy scar and over the baldder. francisca is very sensitive to touch over the scar, she is tender throughout the descending colon and there is restricted myofascial mobility PT-OP-I Pelvic Floor Start: 04/07/20 11:20 Freq: Status: Active Protocol: Document 04/07/20 11:15 [facility] (Rec: 04/08/20 14:19 [facility] [email or web address]) Pelvic Floor Assessment Contraction Ability Voluntary Contraction Moderate Voluntary Relaxation Moderate Manual Muscle Testing Left 4 Manual Muscle Testing Right 4 Manual Muscle Testing Anterior 4 Manual Muscle Testing Posterior 4 Comments Pelvic Floor Comments Heather is able to contract all aspects of her levator ani without pain or guarding PT-OP-J Posture/Palpation/Skin Start: 04/07/20 11:20 Freq: Status: Active Protocol: Document 04/07/20 11:15 [facility] (Rec: 04/08/20 14:23 [facility] [email or web address]) Posture Evaluation Position Standing Evaluation View Lateral Comments Posture Comments pt has a forward posture in sitting, 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 Tenderness in the medial aspect of the scar over the bladder PT-OP-K Range of Motion Start: 04/08/20 14:25 Freq: Status: Active Protocol: Document 04/07/20 11:15 [facility] (Rec: 04/08/20 14:26 [facility] [email or web address]) Hip Goniometric Range of Motion Hip ROM Limitations Hip ROM Limitations Soft Tissue Tightness Comments Iliopsoas tightness bilaterally with + holli test bilaterally PT-OP-M Strength Start: 04/07/20 11:20 Freq: Status: Active Protocol: Document 04/07/20 11:15 [facility] (Rec: 04/08/20 14:25 [facility] [email or web address]) Trunk Strength Trunk Manual Muscle Testing Flexion 3 Fair Comments Poor activation of the transverse abdominal musculature, we tried this in quadruped and it was much easier than supine. Trunk curl up does not reproduce any pain PT-OP-Q Treatments Start: 04/07/20 11:20 Freq: Status: Active Protocol: Document 04/28/20 08:59 [facility] (Rec: 04/28/20 09:08 [facility] [id number]) Therapeutic Exercises Supine Exercises diaphragmatic breathing Supine Exercise Name diaphragmatic breathing Reps/Minutes breath in for 4 pause for 4 exhale for 4 iliopsoas stretch Supine Exercise Name supine iliopsoas stretch Side bilateral Reps/Minutes hold 1-2 minutes Other Exercises quadraped thoracic rotation Reps/Minutes 10 reps quadraped sidebends Other Exercise Name quadruped side bends Reps/Minutes x 10 reps Comments left sided nerve pain not as severe today quadruped rock back Other Exercise Name quadruped rock backs Reps/Minutes x 10 reps cat cow Other Exercise Name cat cow Reps/Minutes x 10 reps quadruped TA facilitation Other Exercise Name quadruped TA facilitation Side bilateral Reps/Minutes 10 reps working up to 10 second hold Manual Therapy Treatment Soft Tissue Mobilization visceral mobilization over the bladder Body Location visceral mobilization over the bladder ILU massage over the colon Body Location abdominal wall 1 Body Location scar tissue mobilization over the left side of lower abdominal incision Taping 1 Body Location left lower abdominal wall Type of Tape Kinesio Tape Comments kinestio tape in a fan pattern was used over the lower abdominal wall to help reduce edema and swelling PT-OP-R Modalities Start: 04/19/20 15:14 Freq: Status: Active Protocol: Document 04/16/20 09:45 [facility] (Rec: 04/19/20 15:15 [facility] [email or web address]) Ultrasound Therapy Treatment abdominal wall over hysterectomy scar Treatment Duration (minutes) 8 Patient Position Supine Coupling Medium Ultrasound Gel Applicator Size (cm2) 5 Mode Setting Continuous Duty Cycle 100% Intensity Setting (w/cm2) 1.5 PT-OP-T Assessment and Plan Start: 04/07/20 11:20 Freq: Status: Active Protocol: Document 04/28/20 08:59 [facility] (Rec: 04/28/20 09:08 [facility] [id number]) Physical Therapy Assessment Assessment Summary Assessment Heather has been seen for 4 visits in PT for her c/o left sided lower abdominal pain. She is still experiencing a great deal of what seems to be nerve pain from the left lower abdominal wall. I have been working on trying to stretch her hip flexors as well as try scar tissue work. I have had to go very slow with scar work as it doesn't take much to set off the pain. It is very specific to the left lower abdominal wall as well as groin region. We have also worked on abdominal bracing and pelvic ROM exercises. She also gets some reproduction of pain when I have her do sidebends of her spine on all 4's so there may be some neural tension higher up in her spine as well . Heather has a few additional visits scheduled and I am happy to continue trying to work on reducing fascial and scar tissue tightness. She has a appointment with you tomorrow 04/29/20 to discuss options. Physical Therapy Plan Frequency and Duration Frequency of Treatment 1x/Week Duration of Treatment 8 Plan of Care Start Date 04/07/20 Plan of Care End Date 06/02/20 Next Visit Focus/Plan Next Note Type Treatment Note Next Visit Plan continue to work on fascial release and scar tissue release in the left lower abdominal wall, work on pelvic mobility, nerve gliding, and hip stretches
--- NOTE | 2020-05-13 11:34 | PT.OTN ---
Current Diagnoses Scar conditions and fibrosis of skin (05/13/20) Pelvic and perineal pain (05/13/20) Other specified postprocedural states (05/13/20) Physical Therapy Treatment Note PT-OP-A Visit Information Start: 04/07/20 11:20 Freq: Status: Active Protocol: Document 05/13/20 09:46 [facility] (Rec: 05/13/20 09:55 [facility] [id number]) Out-Patient Physical Therapy Visit Information Visit Information Visit Type Treatment Note Visit Start Time 09:45 Visit Stop Time 10:30 Total Visit Minutes 45 Visit Number 5 PT-OP-B Current Condition Start: 04/07/20 11:20 Freq: Status: Active Protocol: Document 04/07/20 11:21 [facility] (Rec: 04/07/20 11:33 [facility] [id number]) Current Condition History of Current Condition Onset Date July 2019 Current Complaints pelvic pain and pain across the lower part of the abdominal wall History of Current Condition Heather is a 39 year old female who underwent a laparoscopic supracervical hysterectomy with bilateral salpingectomy March 22 2019. This was done due to severe dysmenorrhea and menorrhagia. In July she started having pain on the left and it felt like things were going to fall out. She had started working out and she thought maybe she pulled something. The pain went away but then comes and goes. Last episode the pain lasted two weeks, it is predominately in the left groin although sometimes can progress to the right side. Sometimes it is so bad that I can't move. She feels a pulling type of pain and that things are going to fall out. She constantly feels like she needs to void, after she voids she feels like she has to go again about 10 minutes later. It was squatting exercises when she started noticing that she was having pressure. Past medical history includes 3 miscarriages, acid reflus, Atypical chest pain Acute 2015 , superficial thrombophlebitis of the left UE 2012 Treatment Goals Patient/Caregiver Goals Heather's goals include decreasing pain across the abdominal wall and pelvis Prior Functional Status Baseline Function- ADL's Independent Current Functional Impairments (Reported) Functional Limitations- ADL's when the pain is at its worst Heather reports she is unable to move and it restricts her activity Functional Limitations- Other pain at night, she feels as if she needs to put pressure over her abdominal wall at night PT-OP-C Subjective Start: 04/07/20 11:20 Freq: Status: Active Protocol: Document 05/13/20 09:46 [facility] (Rec: 05/13/20 09:55 [facility] [id number]) OP-PT Subjective Patient Comments Patient Comments Pt reports the pain comes and go but last night she was in so much pain. The bladder feels more pressure now too, it doesn't empty as well either. PT-OP-F Manual Assessment Start: 04/07/20 11:20 Freq: Status: Active Protocol: Document 04/07/20 11:15 [facility] (Rec: 04/09/20 11:31 [facility] [id number]) Manual Assessments Soft Tissue Assessment Soft Tissue Mobility Assessment restrictions across the left side of the hysterectomy scar and over the baldder. francisca is very sensitive to touch over the scar, she is tender throughout the descending colon and there is restricted myofascial mobility PT-OP-I Pelvic Floor Start: 04/07/20 11:20 Freq: Status: Active Protocol: Document 04/07/20 11:15 [facility] (Rec: 04/08/20 14:19 [facility] [email or web address]) Pelvic Floor Assessment Contraction Ability Voluntary Contraction Moderate Voluntary Relaxation Moderate Manual Muscle Testing Left 4 Manual Muscle Testing Right 4 Manual Muscle Testing Anterior 4 Manual Muscle Testing Posterior 4 Comments Pelvic Floor Comments Heather is able to contract all aspects of her levator ani without pain or guarding PT-OP-J Posture/Palpation/Skin Start: 04/07/20 11:20 Freq: Status: Active Protocol: Document 04/07/20 11:15 [facility] (Rec: 04/08/20 14:23 [facility] [email or web address]) Posture Evaluation Position Standing Evaluation View Lateral Comments Posture Comments pt has a forward posture in sitting, 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 Tenderness in the medial aspect of the scar over the bladder PT-OP-K Range of Motion Start: 04/08/20 14:25 Freq: Status: Active Protocol: Document 04/07/20 11:15 [facility] (Rec: 04/08/20 14:26 [facility] [email or web address]) Hip Goniometric Range of Motion Hip ROM Limitations Hip ROM Limitations Soft Tissue Tightness Comments Iliopsoas tightness bilaterally with + holli test bilaterally PT-OP-M Strength Start: 04/07/20 11:20 Freq: Status: Active Protocol: Document 04/07/20 11:15 [facility] (Rec: 04/08/20 14:25 [facility] [email or web address]) Trunk Strength Trunk Manual Muscle Testing Flexion 3 Fair Comments Poor activation of the transverse abdominal musculature, we tried this in quadruped and it was much easier than supine. Trunk curl up does not reproduce any pain PT-OP-Q Treatments Start: 04/07/20 11:20 Freq: Status: Active Protocol: Document 05/13/20 11:28 [facility] (Rec: 05/13/20 11:34 [facility] [email or web address]) Manual Therapy Treatment Soft Tissue Mobilization visceral mobilization over the bladder Body Location visceral mobilization over the bladder ILU massage over the colon Body Location abdominal wall 1 Body Location scar tissue mobilization over the left side of lower abdominal incision Manual Techniques manual iliopsoas stretch Comments manual iliopsoas stretch in holli test position manual adductor stretch Type manual adductor stretch Comments pt to use strap at home to stretch the adductors Self-Care/Home Management Treatment Education Patient Education Home Exercise Program Other Education pt was shown how to decompress her pelvis by using a wedge underneath her to take pressure off. Education to use ice over the left side of the abdominal wall following her stretching PT-OP-R Modalities Start: 04/19/20 15:14 Freq: Status: Active Protocol: Document 04/16/20 09:45 [facility] (Rec: 04/19/20 15:15 [facility] [email or web address]) Ultrasound Therapy Treatment abdominal wall over hysterectomy scar Treatment Duration (minutes) 8 Patient Position Supine Coupling Medium Ultrasound Gel Applicator Size (cm2) 5 Mode Setting Continuous Duty Cycle 100% Intensity Setting (w/cm2) 1.5 PT-OP-T Assessment and Plan Start: 04/07/20 11:20 Freq: Status: Active Protocol: Document 05/13/20 11:28 [facility] (Rec: 05/13/20 11:34 [facility] [email or web address]) Physical Therapy Assessment Assessment Summary Assessment Heather is still in a great deal of pain. She was very sensitive to the adductors today and I added in a stretch for her adductors. She has the next few days off work so I encouraged walking and stretching out her hip flexor. I also did a trial of ice with her today and encouraged her to use ice at home if this gives her any relief. She has one visit left in PT. Physical Therapy Plan Frequency and Duration Frequency of Treatment 1x/Week Duration of Treatment 8 Plan of Care Start Date 04/07/20 Plan of Care End Date 06/02/20 Next Visit Focus/Plan Next Note Type Treatment Note Next Visit Plan continue to work on fascial release and scar tissue release in the left lower abdominal wall, work on pelvic mobility, nerve gliding, and hip stretches.
--- NOTE | 2020-05-28 17:30 | PT.OTN ---
Current Diagnoses Scar conditions and fibrosis of skin (05/28/20) Pelvic and perineal pain (05/28/20) Other specified postprocedural states (05/28/20) Physical Therapy Treatment Note PT-OP-A Visit Information Start: 04/07/20 11:20 Freq: Status: Active Protocol: Document 05/28/20 09:51 [facility] (Rec: 05/28/20 10:03 [facility] [id number]) Out-Patient Physical Therapy Visit Information Visit Information Visit Type Aquatic Treatment Note Visit Start Time 09:52 Visit Stop Time 10:20 Total Visit Minutes 28 Visit Number 6 PT-OP-B Current Condition Start: 04/07/20 11:20 Freq: Status: Active Protocol: Document 04/07/20 11:21 [facility] (Rec: 04/07/20 11:33 [facility] [id number]) Current Condition History of Current Condition Onset Date July 2019 Current Complaints pelvic pain and pain across the lower part of the abdominal wall History of Current Condition Heather is a 39 year old female who underwent a laparoscopic supracervical hysterectomy with bilateral salpingectomy March 22 2019. This was done due to severe dysmenorrhea and menorrhagia. In July she started having pain on the left and it felt like things were going to fall out. She had started working out and she thought maybe she pulled something. The pain went away but then comes and goes. Last episode the pain lasted two weeks, it is predominately in the left groin although sometimes can progress to the right side. Sometimes it is so bad that I can't move. She feels a pulling type of pain and that things are going to fall out. She constantly feels like she needs to void, after she voids she feels like she has to go again about 10 minutes later. It was squatting exercises when she started noticing that she was having pressure. Past medical history includes 3 miscarriages, acid reflus, Atypical chest pain Acute 2015 , superficial thrombophlebitis of the left UE 2012 Treatment Goals Patient/Caregiver Goals Heather's goals include decreasing pain across the abdominal wall and pelvis Prior Functional Status Baseline Function- ADL's Independent Current Functional Impairments (Reported) Functional Limitations- ADL's when the pain is at its worst Haether reports she is unable to move and it restricts her activity Functional Limitations- Other pain at night, she feels as if she needs to put pressure over her abdominal wall at night PT-OP-C Subjective Start: 04/07/20 11:20 Freq: Status: Active Protocol: Document 05/28/20 09:51 [facility] (Rec: 05/28/20 10:03 [facility] [id number]) OP-PT Subjective Patient Comments Patient Comments Heather reports since the last appointment she has been in pain. She calls it a ripping type of pain where it feels like her tissue is being pulled apart. The pelvic pressure feeling did get better using the wedge at home . PT-OP-F Manual Assessment Start: 04/07/20 11:20 Freq: Status: Active Protocol: Document 04/07/20 11:15 [facility] (Rec: 04/09/20 11:31 [facility] [id number]) Manual Assessments Soft Tissue Assessment Soft Tissue Mobility Assessment restrictions across the left side of the hysterectomy scar and over the baldder. francisca is very sensitive to touch over the scar, she is tender throughout the descending colon and there is restricted myofascial mobility PT-OP-I Pelvic Floor Start: 04/07/20 11:20 Freq: Status: Active Protocol: Document 04/07/20 11:15 [facility] (Rec: 04/08/20 14:19 [facility] [email or web address]) Pelvic Floor Assessment Contraction Ability Voluntary Contraction Moderate Voluntary Relaxation Moderate Manual Muscle Testing Left 4 Manual Muscle Testing Right 4 Manual Muscle Testing Anterior 4 Manual Muscle Testing Posterior 4 Comments Pelvic Floor Comments Heather is able to contract all aspects of her levator ani without pain or guarding PT-OP-J Posture/Palpation/Skin Start: 04/07/20 11:20 Freq: Status: Active Protocol: Document 04/07/20 11:15 [facility] (Rec: 04/08/20 14:23 [facility] [email or web address]) Posture Evaluation Position Standing Evaluation View Lateral Comments Posture Comments pt has a forward posture in sitting, 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 Tenderness in the medial aspect of the scar over the bladder PT-OP-K Range of Motion Start: 04/08/20 14:25 Freq: Status: Active Protocol: Document 04/07/20 11:15 [facility] (Rec: 04/08/20 14:26 [facility] [email or web address]) Hip Goniometric Range of Motion Hip ROM Limitations Hip ROM Limitations Soft Tissue Tightness Comments Iliopsoas tightness bilaterally with + holli test bilaterally PT-OP-M Strength Start: 04/07/20 11:20 Freq: Status: Active Protocol: Document 04/07/20 11:15 [facility] (Rec: 04/08/20 14:25 [facility] [email or web address]) Trunk Strength Trunk Manual Muscle Testing Flexion 3 Fair Comments Poor activation of the transverse abdominal musculature, we tried this in quadruped and it was much easier than supine. Trunk curl up does not reproduce any pain PT-OP-Q Treatments Start: 04/07/20 11:20 Freq: Status: Active Protocol: Document 05/28/20 17:26 [facility] (Rec: 05/28/20 17:30 [facility] [email or web address]) Manual Therapy Treatment Soft Tissue Mobilization left adductor release Body Location left adductor release Manual Techniques manual iliopsoas stretch Comments manual iliopsoas stretch in holli test position manual adductor stretch Type manual adductor stretch Comments pt to use strap at home to stretch the adductors PT-OP-R Modalities Start: 04/19/20 15:14 Freq: Status: Active Protocol: Document 04/16/20 09:45 [facility] (Rec: 04/19/20 15:15 [facility] [email or web address]) Ultrasound Therapy Treatment abdominal wall over hysterectomy scar Treatment Duration (minutes) 8 Patient Position Supine Coupling Medium Ultrasound Gel Applicator Size (cm2) 5 Mode Setting Continuous Duty Cycle 100% Intensity Setting (w/cm2) 1.5 PT-OP-T Assessment and Plan Start: 04/07/20 11:20 Freq: Status: Active Protocol: Document 05/28/20 17:26 [facility] (Rec: 05/28/20 17:30 [facility] [id number]) Physical Therapy Assessment Assessment Summary Assessment Heather appeared very flared up today. She has sharp pain left lower quadrant and the colon seems to be involved. She could barely let me use light touch on the area today. I tried doing some iliopsoas stretches and adductor release but this was so painful for her today. I did put a call in to Dr. Grey who will be ordering a CT scan to look at her colon. She mentioned today that she had ate more bread than normal and this backed her up with her bowel movements. She notes more pain with this. This was her last visit in PT today and we will put PT on hold until after the CT scan. Physical Therapy Plan Hold Physical Therapy Reason For Hold Pt on hold until further testing is completed on her abdomen.
--- NOTE | 2020-08-27 09:32 | PT.OPDS ---
Current Diagnoses Scar conditions and fibrosis of skin (05/28/20) Pelvic and perineal pain (05/28/20) Other specified postprocedural states (05/28/20) Visit Care Team Role Provider Type MARISA To Primary Care Provider Non-Staff Specialty: Family Practice Address: [address] [address], [place], [address] Fax: Email: Araceli Grey MD Attending Provider Physician Referring Provider Specialty: Gynecology FINISHING MANAGER Obstetrics Address: [address] [place] [address], [id number] Email: [email or web address] Visit Number Visit Number 6 Discharge Summary PT-OP-B Current Condition Start: 04/07/20 11:20 Freq: Status: Active Protocol: Document 04/07/20 11:21 [facility] (Rec: 04/07/20 11:33 [facility] [id number]) Current Condition History of Current Condition Onset Date July 2019 Current Complaints pelvic pain and pain across the lower part of the abdominal wall History of Current Condition Heather is a 39 year old female who underwent a laparoscopic supracervical hysterectomy with bilateral salpingectomy March 22 2019. This was done due to severe dysmenorrhea and menorrhagia. In July she started having pain on the left and it felt like things were going to fall out. She had started working out and she thought maybe she pulled something. The pain went away but then comes and goes. Last episode the pain lasted two weeks, it is predominately in the left groin although sometimes can progress to the right side. Sometimes it is so bad that I can't move. She feels a pulling type of pain and that things are going to fall out. She constantly feels like she needs to void, after she voids she feels like she has to go again about 10 minutes later. It was squatting exercises when she started noticing that she was having pressure. Past medical history includes 3 miscarriages, acid reflus, Atypical chest pain Acute 2015 , superficial thrombophlebitis of the left UE 2012 Treatment Goals Patient/Caregiver Goals Heather's goals include decreasing pain across the abdominal wall and pelvis Prior Functional Status Baseline Function- ADL's Independent Current Functional Impairments (Reported) Functional Limitations- ADL's when the pain is at its worst Heather reports she is unable to move and it restricts her activity Functional Limitations- Other pain at night, she feels as if she needs to put pressure over her abdominal wall at night PT-OP-C Subjective Start: 04/07/20 11:20 Freq: Status: Active Protocol: Document 05/28/20 09:51 AMH (Rec: 05/28/20 10:03 AMH [id number]) OP-PT Subjective Patient Comments Patient Comments Heather reports since the last appointment she has been in pain. She calls it a ripping type of pain where it feels like her tissue is being pulled apart. The pelvic pressure feeling did get better using the wedge at home . PT-OP-F Manual Assessment Start: 04/07/20 11:20 Freq: Status: Active Protocol: Document 04/07/20 11:15 AM[facility] (Rec: 04/09/20 11:31 [facility] [id number]) Manual Assessments Soft Tissue Assessment Soft Tissue Mobility Assessment restrictions across the left side of the hysterectomy scar and over the baldder. francisca is very sensitive to touch over the scar, she is tender throughout the descending colon and there is restricted myofascial mobility PT-OP-I Pelvic Floor Start: 04/07/20 11:20 Freq: Status: Active Protocol: Document 04/07/20 11:15 AM[facility] (Rec: 04/08/20 14:19 AMH [id number]) Pelvic Floor Assessment Contraction Ability Voluntary Contraction Moderate Voluntary Relaxation Moderate Manual Muscle Testing Left 4 Manual Muscle Testing Right 4 Manual Muscle Testing Anterior 4 Manual Muscle Testing Posterior 4 Comments Pelvic Floor Comments Heather is able to contract all aspects of her levator ani without pain or guarding PT-OP-J Posture/Palpation/Skin Start: 04/07/20 11:20 Freq: Status: Active Protocol: Document 04/07/20 11:15 AMH (Rec: 04/08/20 14:23 AMH [email or web address]) Posture Evaluation Position Standing Evaluation View Lateral Comments Posture Comments pt has a forward posture in sitting, 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 Tenderness in the medial aspect of the scar over the bladder PT-OP-K Range of Motion Start: 04/08/20 14:25 Freq: Status: Active Protocol: Document 04/07/20 11:15 AMH (Rec: 04/08/20 14:26 AMH [email or web address]) Hip Goniometric Range of Motion Hip ROM Limitations Hip ROM Limitations Soft Tissue Tightness Comments Iliopsoas tightness bilaterally with + holli test bilaterally PT-OP-M Strength Start: 04/07/20 11:20 Freq: Status: Active Protocol: Document 04/07/20 11:15 AMH (Rec: 04/08/20 14:25 AMH [email or web address]) Trunk Strength Trunk Manual Muscle Testing Flexion 3 Fair Comments Poor activation of the transverse abdominal musculature, we tried this in quadruped and it was much easier than supine. Trunk curl up does not reproduce any pain PT-OP-T Assessment and Plan Start: 04/07/20 11:20 Freq: Status: Active Protocol: Document 08/27/20 09:31 AMH (Rec: 08/27/20 09:32 AMH [email or web address]) Physical Therapy Assessment Assessment Summary Assessment Heather was referred back to her MD for ongoing abdominal pain L>R Physical Therapy Plan Discharge Physical Therapy Discharge Reasons Change in Medical Status Discharge Comments Pt referred back to her MD for further work up regarding her pain.
== END 2020-09-11 11:54 ==
LOC: PHYS 09:45
PROVIDERS: PCP Nurse Practitioner Family; Referring Provider Obstetrics & Gynecology; Visit Provider Obstetrics & Gynecology
DX: R10.2 Pelvic and perineal pain (principal); Z98.890 Other specified postprocedural states; L90.5 Scar conditions and fibrosis of skin
CPT/HCPCS: 97110; 97140; 97161

== ENCOUNTER → 2020-06-02 09:44 | Outpatient (CLI) | payer OTHER, SELFPAY ==
[2019-03-21 12:47] VITALS: BMI 35.6
--- NOTE | 2020-06-02 10:22 | DI.CT.S_ITS ---
PROCEDURE: CT ABDOMEN PELVIS W CON INDICATIONS: Eval worsening abd/pelvic pain TECHNIQUE: After the administration of intravenous contrast, 5 mm thick sections acquired from the diaphragm to the symphysis. 5 mm coronal and sagittal reformats were acquired. For radiation dose reduction, the following was used: automated exposure control, adjustment of mA and/or kV according to patient size. COMPARISON: [facility], CT, KUB - CT (PN), 12/21/2012, 11:55. FINDINGS: Image quality: Excellent. ABDOMEN: Lung bases: Lung bases are clear. Heart size is normal. Subcentimeter hepatic foci are statistically cysts or hemangiomas, although technically too small to characterize accurately and therefore nonspecific. Hypodense 1.6 cm lesion in the subcapsular left lobe which appears new although technically indeterminate The gallbladder is grossly unremarkable. Biliary system is non dilated. Pancreas enhances normally. Spleen is normal in size and enhancement. No adrenal nodules. Kidneys demonstrate normal size and enhancement, without hydronephrosis. Peritoneum and bowel: Bowel loops demonstrate normal wall thickness and caliber. No free fluid or air. Normal appendix. Nodes and vessels: No retroperitoneal or mesenteric adenopathy by size criteria. Aorta and inferior vena cava are normal in size. Miscellaneous: No ventral hernias. There is mild left anterior abdominal wall and left rectus muscle stranding and inflammation which is presumably postoperative PELVIS: Genitourinary: Bladder wall thickness is normal. Miscellaneous: No inguinal hernias or adenopathy. Bones: No suspicious bony lesions. No vertebral body compression fractures. IMPRESSION: Mild stranding and inflammation involving the left anterior abdominal wall presumably postoperative in nature. Recommend clinical correlation to exclude infection. 1.6 cm ill-defined hypodense lesion in the anterior left hepatic lobe, possibly hemangioma although technically nonspecific. Further evaluation and long-term surveillance could be performed with dedicated ultrasound to document long-term stability. Additional chronic and incidental findings as above. Dictated by: Carlton Engel M.D. on 06/02/2020 at 10:50 Approved by: Carlton Engel M.D. on 06/02/2020 at 11:05
== END ==
PROVIDERS: PCP Nurse Practitioner Family; Referring Provider Obstetrics & Gynecology; Visit Provider Obstetrics & Gynecology
DX: R10.2 Pelvic and perineal pain (principal); K76.9 Liver disease, unspecified; N99.4 Postprocedural pelvic peritoneal adhesions; Z90.711 Acquired absence of uterus with remaining cervical stump
CPT/HCPCS: 74177; Q9967

== ENCOUNTER → 2020-08-01 11:12 | Outpatient (CLI) | payer OTHER, SELFPAY ==
[2020-07-01 12:59] VITALS: BMI 35.6
[2020-08-01 11:35] LABS: COVID19 -Nasal RAPID Negative (Negative)
== END ==
PROVIDERS: PCP Nurse Practitioner Family; Visit Provider Nurse Practitioner Family
DX: Z20.822 Contact with and (suspected) exposure to COVID-19 (principal)
CPT/HCPCS: 87635

== ENCOUNTER → 2020-08-05 09:54 | Outpatient (CLI) | payer OTHER, SELFPAY ==
[2020-07-01 12:59] VITALS: BMI 35.6
[2020-08-05 10:27] LABS: COVID19 -Nasal RAPID Negative (Negative)
== END ==
PROVIDERS: PCP Nurse Practitioner Family; Visit Provider Obstetrics & Gynecology
DX: Z01.812 Encounter for preprocedural laboratory examination (principal); Z20.822 Contact with and (suspected) exposure to COVID-19
CPT/HCPCS: 87635

== ENCOUNTER 2020-08-06 06:28 | Day surgery (SDC) | payer OTHER, SELFPAY ==
[2020-07-01 12:59] VITALS: BMI 35.6
[2020-08-06] VITALS (15 sets, daily range): BP systolic 93–138; BP diastolic 55–93; PULSE 71–133; RESP 11–22; TEMP 36.4–37.2; O2SAT 93–100; BMI 35.4
--- NOTE | 2020-08-06 | PATH_ITS ---
[facility] Accession Number: [id number] . 01 Material submitted: . subcutaneous tissue - SUBCUTANEOUS MASS- . 01 Clinical history: . LOOKING FOR ENDOMETRIOSIS . 02 Diagnosis: Subcutaneous Mass, Excision: Mature adipose tissue, consistent with benign lipoma. No evidence of endometriosis. No evidence of malignancy. [facility] 08/12/2020 1142 Local . 02 Electronically signed: . Frederick Denise MD, PhD, Pathologist NPI- [id number] . 01 Gross description: . The specimen is received in formalin, labeled subcutaneous mass and consists of multiple mack-yellow fragments of adipose tissue measuring 3.5 x 3.0 x 2.0 cm in aggregate. The larger fragments are serially sectioned and the specimen is entirely submitted in cassettes A1-A5. (EA:[id number]) /MRV 08/07/2020 1428 Local . 02 Pathologist provided ICD-10: D17.9 . 02 CPT . 867012 Performed at: 01 [facility] [address] [facility], [place], [place] [id number] MD Erick Davidson MD Phone: [phone] Performed at: 02 [facility] [address] [place], [place] [id number] MD Carin Gilman MD Phone: [phone]
[2020-08-06] MEDS: LACTATED RINGERS 1,000 ML 100 ML IV (07:15)
[2020-08-06] MEDS: GABAPENTIN 300 MG CAPSULE PO (07:31)
[2020-08-06] MEDS: ACETAMINOPHEN 325 MG TABLET 975 MG PO (07:31)
[2020-08-06] MEDS: SCOPOLAMINE 1 PATCH TOP (07:31)
--- NOTE | 2020-08-06 08:14 | PM.PREOP ---
Pre-operative Note COVID-19 COVID-19 status: Negative Result date/Date tested (Pos, Neg/Pending): 08/05/20 Interval Note History & Physical reviewed/Exam performed by Physician: Yes Changes to H&P: No H&P completed within 30 days and has changed as indicated here:: 07/28/20
[2020-08-06] MEDS: CEFAZOLIN 2 GM/100 ML FROZ.PIGGY IV (08:32)
--- NOTE | 2020-08-06 08:42 | SUR.OPER ---
Lithotomy on padded OR bed. Chilili Pad Positioner under torso. Head on pillow, arms padded and tucked at sides. Legs secured in padded yellow fins stirrups. Pt voided prior to arrival into operating room.
[2020-08-06] MEDS: BUPIVACAINE 0.5% W/ EPI (PF) 30 ML VIAL INJ (08:51)
[2020-08-06] MEDS: fentaNYL 100 MCG/2 ML INJ IV ×2 (09:55→10:00)
[2020-08-06] MEDS: HYDROMORPHONE 2 MG INJ IV ×8 (10:00→10:40)
--- NOTE | 2020-08-06 10:06 | PM.GYNOP.1 ---
Operative Date/Time/Diagnoses Date of procedure: 08/06/20 Time of procedure: 10:07 Pre-op diagnosis: Left lower quadrant pain Mass in subcutaneous layer on the left s/p LSCH Post-op diagnosis: same Procedure & Clinicians Procedure: Procedures Operation Date: 08/06/20 07:45 Actual Procedures Side Surgeon p DX Laparoscopy w/ lysis of adhesions, excision of endometriosis from subcutaneous layer, Fulguration of endometriosis Araceli Grey MD Indications: Left lower quadrant pain Mass in left subcutaneous tissue below incision Status post laparoscopic supracervical hysterectomy Surgeon: Araceli Grey Anesthesia Type: General and Local Operative Notes Findings: Uterus absent. Cervix with peritoneum over it Normal ovaries LLQ adhesions with omentum stuck to pelvic sidewall and anterior abdominal wall Endometriosis of left pelvic sidewall and ovarian fossae Small 2 cm simple cyst on left ovary Closure Type: primary Specimen(s): other (Mass in left SQ layer under incision) Estimated blood loss (mL): 10 Blood products transfused: none Procedure in detail: The patient was taken to the operating room where she was placed in the dorsal supine position. After adequate general endotracheal anesthesia was achieved, she was placed in the dorsal lithotomy position, and prepped and draped in the usual sterile fashion. A time-out was performed. A moistened sponge stick was placed into the vagina. Attention was turned to the abdomen where 6 cc of 0.5% Marcaine with epinephrine were injected in the umbilical fold. A 5 mm incision was made. The Veress needle was placed into the peritoneal cavity, and its placement confirmed by aspiration and drop test. The abdominal cavity was insufflated with 4.2 L of CO2. The Veress needle was removed, and a 5 mm trocar was placed without difficulty. Two other incisions were made through the previous incisions lateral to the midline after 6 cc of 0.5% Marcaine with epinephrine were injected. Two 5 mm incisions were made. Two 5 mm trocars were placed under direct visualization. Using the probe the pelvis was identified. The cervix was covered with peritoneum. On the left side there were adhesions that were quite dense. These were taken down with the Endo Martina both bluntly and with cautery, until the pelvic sidewall could be visualized. There were multiple spots of endometriosis in the left ovarian fossa and on the left pelvic sidewall. These were fulgurated with care to avoid the ureter. There was a simple cyst on the left ovary. This was excised with the Endo Martina and PlasmaKinetic. The right ovary was normal. There was 1 small area of adhesions between the omentum and anterior abdominal wall in the right lower quadrant. These were also taken down with Endo Martina both bluntly and with cautery. The liver was visualized and was normal. Approximately 12 spots of endometriosis were fulgurated. The pelvis was copiously irrigated with warm normal saline. Hemostasis was achieved. The instruments were removed from the abdomen. The CO2 was allowed to escape. The trocars were removed from the abdomen. The incisions were repaired with 4 0 Biosyn in a subcuticular fashion. Steri-Strips and Allevyn dressings were placed. Attention was turned to the suprapubic area. 6 cc of 0.5% Marcaine with epinephrine were injected under the previous suprapubic incision. The incision was reopened. Using the dimensions from the CT scan of where the mass was in the subcutaneous layer, the area was dissected down into the subcutaneous layer. This started approximately 2 cm from the midline and extended passed to 4 cm from the midline. A mass was encountered in the subcutaneous layer. This was removed using the Metzenbaum scissors. The Bovie was used for hemostasis in the subcutaneous layer. Two simple interrupted sutures with 2-0 Vicryl were placed to reapproximate the subcutaneous layer. The skin was closed with 4 0 Biosyn. Steri-Strips and an Allevyn dressing were placed. The moistened sponge stick was removed from the vagina. Sponge, lap, and instrument counts were correct x2. The patient tolerated the procedure well, and was taken to PACU in stable condition. Complications: none Post-operative Condition: stable Disposition: PACU Plan for aftercare: Home after recovery
[2020-08-06] MEDS: LORazepam 2 MG/ML INJ 0.5 MG IV ×2 (10:15→10:45)
--- NOTE | 2020-08-06 11:23 | SUR.PHASEI ---
Pt off and on of 2-3 L of Oxygen per NC throughout pacu stay. Pt feeling sleepy now placed back on pt to maintain oxygen sat
--- NOTE | 2020-08-06 11:53 | SUR.PHASEI ---
Report to CHARLOTTE Kelley and charlotte Payton . Will transfer pt to phase 2 and keep her on oxygen 2L and continur to monitor
[2020-08-06] MEDS: HYDROMORPHONE 2 MG TABLET 4 MG PO (12:32)
--- NOTE | 2020-08-06 12:34 | SUR.PHASEII ---
1145-Dr Grey by and order requested for 2mgDilaudid po, Dr Grey given complete record of meds given in pacu and states pt will be fine with 4mg Dilaudid po order and to give pt this amount vs the 2mg.
--- NOTE | 2020-08-06 12:37 | SUR.PHASEII ---
1155-Pt transferred to phase 2 and placed on continuous oxygen sat monitoring without oxygen and doing well. Pt states would like to try going to bathroom, assisted up to wc then to br, voiding well without problems. Back to bed
--- NOTE | 2020-08-06 12:42 | SUR.PHASEII ---
122Jamil-Allie RN taking over care for pt full report given and would like pt to get the 4mg Dilaudid so this was given.
== END 2020-08-06 14:00 | disposition home or self-care (01) ==
PROVIDERS: PCP Nurse Practitioner Family; Referring Provider Nurse Practitioner Family; Visit Provider Obstetrics & Gynecology
PROC: (CPT 49320; principal; 2020-08-06 07:45)
DX: K66.0 Peritoneal adhesions (postprocedural) (postinfection) (principal); N83.292 Other ovarian cyst, left side; D17.1 Benign lipomatous neoplasm of skin and subcutaneous tissue of trunk
CPT/HCPCS: 58662; 11404; J0330; J0690; J1100; J1170; J1885; J2060; J2250; J2704; J3010

== ENCOUNTER → 2020-08-31 09:41 | Outpatient (CLI) | payer OTHER, SELFPAY ==
[2020-07-01 12:59] VITALS: BMI 35.6
[2020-08-31 10:19] LABS: Add Manual Diff / Slide Review NO; Basophils Absolute Auto 100 /uL (0-100); Eosinophils Absolute Auto 200 /uL (0-450); Eosinophils Percent Auto 3.6 % (2-4); Hematocrit 42.9 % (36-46); Hemoglobin 14.6 g/dL (12.0-16.0); Lymphocytes Absolute Auto 1600 /uL (1100-4500); Lymphocytes Percent Auto 30.3 % (25-40); Mean Corpuscular Hemoglobin 30.4 PG (26-34); Mean Corpuscular Volume 89.4 fL (80-100); Monocytes Absolute Auto 400 /uL (0-900); Monocytes Percent Auto 7.8 % (3-14); Neutrophils Absolute Auto 3000 /uL (1500-7000); Neutrophils Percent Auto 57.3 % (50-75); Platelet Count 217 X10^3/uL (150-400); Red Cell Distribution Width 12.4 % (11.6-14.8); White Blood Cell Count 5.2 X10^3/uL (4.5-11.0)
[2020-08-31 11:11] LABS: Follicle Stimulating Hormone 3.99 mIU/mL
[2020-08-31 11:13] LABS: Free T4, Direct Thyroxine 1.05 ng/dL (0.78-2.19)
[2020-08-31 11:27] LABS: Thyroid Stimulating Hormone 1.04 uIU/mL (0.47-4.68)
== END ==
PROVIDERS: PCP Nurse Practitioner Family; Referring Provider Obstetrics & Gynecology; Visit Provider Obstetrics & Gynecology
DX: R61 Generalized hyperhidrosis (principal); R23.2 Flushing
CPT/HCPCS: 36415; 83001; 84439; 84443; 85025

== ENCOUNTER → 2021-07-14 10:41 | Outpatient (CLI) | payer OTHER, SELFPAY ==
[2020-07-01 12:59] VITALS: BMI 35.6
--- NOTE | 2021-07-14 10:48 | DI.CT.S_ITS ---
PROCEDURE: CT ABDOMEN PELVIS W CON INDICATIONS: Left lower quadrant pain TECHNIQUE: After the administration of intravenous contrast, axial sections acquired from the lung bases to the pubic symphysis. Coronal and sagittal reformats were performed. For radiation dose reduction, the following was used: automated exposure control, adjustment of mA and/or kV according to patient size. COMPARISON: [facility], US, US PELVIC COMPLETE, 11/10/2020, 16:07. [facility], US, US PELVIC COMPLETE, 02/19/2020, 9:17. [facility], CT, CT ABDOMEN PELVIS W CON, 06/02/2020, 10:22. FINDINGS: Image quality: Excellent. Lung bases: Unremarkable. Heart: No significant findings. ABDOMEN: Liver: Minimal increase in the size of a hypodense left lobe liver lesion, measuring 1.9 x 1.4 cm on previous image 16/2, and 2.2 x 1.5 cm on current image 19/2. Other small liver lesions are stable, consistent with cysts versus hemangiomata. Gallbladder: Unremarkable. Biliary ducts: Unremarkable. Pancreas: Unremarkable. Spleen: Unremarkable. Adrenal Glands: Unremarkable. Kidneys and Ureters: Unremarkable. Stomach and Bowel: Stomach, small bowel loops, and colon are unremarkable. Peritoneum: No abnormal intraperitoneal fluid. No free air. Ventral Wall: No hernias. Abdominal Nodes: No retroperitoneal or mesenteric adenopathy by size criteria. Vessels: Aorta and inferior vena cava are normal in size. PELVIS: Pelvic Organs: Subtotal hysterectomy. Cystic lesion of right adnexa measuring 4.2 cm. Cystic lesion of left adnexa measuring 2.5 cm. Bladder: Unremarkable. Pelvic Nodes: No enlarged lymph nodes. Miscellaneous: No hernias are seen. Bones: Unremarkable. IMPRESSION: 1. There are bilateral cystic adnexal lesions, 4.2 cm on the right and 2.5 cm on the left. These may simply represent ovarian cysts. However, cannot exclude endometriomas. Further characterization with pelvic ultrasound may be helpful. 2. Slight interval increase in the size of a hypodense left lobe liver lesion. This may potentially represent a slowly growing liver cyst. However, it is atypical in appearance. Recommend consider ultrasound of this lesion to determine whether it is cystic or solid. Comment: Pelvic ultrasound may be helpful to further evaluate bilateral adnexal cystic lesions. Limited abdominal ultrasound may be helpful to further evaluate the left lobe liver lesion. Dictated by: Chevy Simeon M.D. on 07/14/2021 at 11:23 Approved by: Chevy Simeon M.D. on 07/14/2021 at 11:34
== END ==
PROVIDERS: PCP Family Medicine; Referring Provider Surgery; Visit Provider Surgery
DX: R10.32 Left lower quadrant pain (principal); N94.9 Unspecified condition associated with female genital organs and menstrual cycle; K76.9 Liver disease, unspecified; Z90.710 Acquired absence of both cervix and uterus
CPT/HCPCS: 74177; Q9967

== ENCOUNTER → 2021-08-16 10:23 | Outpatient (CLI) | payer OTHER, SELFPAY ==
[2020-07-01 12:59] VITALS: BMI 35.6
[2021-08-16 12:55] LABS: COVID19 -Nasal RAPID Negative (Negative)
== END ==
PROVIDERS: PCP Family Medicine; Visit Provider Surgery
DX: Z01.812 Encounter for preprocedural laboratory examination (principal); Z20.822 Contact with and (suspected) exposure to COVID-19
CPT/HCPCS: 87635; C9803

== ENCOUNTER 2021-08-17 06:45 | Day surgery (SDC) | payer OTHER, SELFPAY ==
[2020-07-01 12:59] VITALS: BMI 35.6
[2021-08-13 08:14] VITALS: BMI 34.0
[2021-08-17] VITALS (19 sets, daily range): BP systolic 100–140; BP diastolic 61–97; PULSE 15–112; RESP 12–22; TEMP 36.2–36.8; O2SAT 94–100; BMI 33.4
--- NOTE | 2021-08-17 | PATH_ITS ---
[facility] Accession Number: [id number] . 01 Material submitted: . PART A: abdomen - LEFT LOWER ABDOMINAL WALL MASS PART B: abdomen - LEFT LOWER ABDOMINAL WALL MASS #2 . 01 Clinical history: . B: POSSIBLE ENDOMETRIOSIS . 01 Diagnosis: A. Left Lower Abdominal Wall Mass, Biopsy: Endometriosis. . B. Left Lower Abdominal Wall Mass #2, Biopsy: Endometriosis. MRV 08/23/2021 1342 Local . 01 Comment: The histologic material was reviewed with Dr. Cortez Ni, who concurs. . 01 Electronically signed: . uEgenia Romeo MD, Dermatopathologist NPI- [id number] . 01 Gross description: . Part A: LEFT LOWER ABDOMINAL WALL MASS: Received in formalin is 1 fragment of mack soft tissue measuring 2.0 x 2.0 x 2.0 cm. Tissue is inked. Specimen is sectioned and submitted in sales representative uniforms sections in 2 cassettes. Part B: LEFT LOWER ABDOMINAL WALL MASS #2: Received in formalin is 1 fragment of mack soft tissue measuring 1.4 x 1.1 x 0.7 cm. Tissue is inked. Specimen is sectioned and submitted in its entirety in 1 cassette. /KRISSY 08/19/2021 1945 Local . 01 Pathologist provided ICD-10: N80.9 . 01 CPT . 851827, 028727 Specimen Comment: A courtesy copy of this report has been sent to [phone] Performed at: 01 [facility] [address] [place] [id number] MD Erick Davidson MD Phone: [phone]
[2021-08-17] MEDS: LACTATED RINGERS 1,000 ML 42 ML IV (07:07)
[2021-08-17] MEDS: SCOPOLAMINE 1 PATCH TOP (07:50)
--- NOTE | 2021-08-17 07:53 | P.HP_ITS ---
History of Present Illness History of Present Illness Date Patient Seen: 08/17/21 Time Patient Seen: 07:53 Chief complaint: SDC Narrative: 40-year-old woman with chronic neuropathic pain in her left suprapubic region after a laparoscopic supracervical hysterectomy in 2019. She has responded well to an ex for all nerve block. Patient History Medical History Acid reflux Arm vein blood clot Atypical chest pain (~2015) Difficulty swallowing Miscarriage Superficial thrombophlebitis of left upper extremity (~2012) Urinary frequency Surgical History (Updated 08/13/21 @ 08:19 by Henny Barrow RN) H/O bilateral salpingectomy (~03/21/19) History of laparoscopy (08/06/20) S/P laparoscopic supracervical hysterectomy (~03/21/19) S/P T&A (status post tonsillectomy and adenoidectomy) [place] teeth extracted Family & Social History Social History: household members spouse Tobacco & Substance use: Smoking Status Former smoker alcohol intake current alcohol intake frequency a few times a month Substance Use Type does not use Meds Home Medications and Allergies Home Medications Medication Instructions Recorded Confirmed Type tramadol 100 mg tablet 100 mg PO Q4H PRN #20 tab 08/09/21 08/17/21 Rx Allergies Allergy/AdvReac Type Severity Reaction Status Date / Time adhesive Allergy Severe Rash Verified 08/17/21 07:11 PAIN MEDICATIONS AdvReac Unknown Nausea Uncoded 08/17/21 06:57 Exam Vital Signs (past 8 hours): - 08/17/21 06:58 Temperature 97.4 F L Pulse Rate 92 H Respiratory Rate 16 Blood Pressure 111/83 Pulse Oximetry 100 Oxygen Delivery Method Room Air Const General: healthy appearing Resp Effort & Inspection: normal respiratory effort GI Other: Abdomen is soft Tender to palpation at a point located in the left suprapubic region Assessment & Plan Assessment and plan (1) Left lower quadrant pain: Status: Acute Plan 40-year-old woman with neuropathy. Suspect a neuroma or encasement by scar tissue of the left iliohypogastric nerve. Plan for exploration and neurectomy. COVID-19 COVID-19 status: Negative Result date/Date tested (Pos, Neg/Pending): 08/16/21 Time Spent With Patient Critical Care time: I spent a total of [] minutes of critical care time on this patient's care today; this time is exclusive of procedural time.
--- NOTE | 2021-08-17 08:49 | SUR.OPER ---
Supine on padded OR bed, head on pillow, arms secured on padded arm boards at <90 degrees abduction, legs uncrossed, safety belt at thigh, tape over blanket over lower legs.
[2021-08-17] MEDS: LIDOCAINE 1% 20 ML INJ (08:54)
[2021-08-17] MEDS: BUPIVACAINE LIPOSOME 266 MG/20 ML VIAL INJ (08:56)
[2021-08-17] MEDS: HYDROMORPHONE 2 MG INJ IV ×3 (10:46→11:03)
[2021-08-17] MEDS: ONDANSETRON 4 MG/2 ML INJ IV (10:47)
--- NOTE | 2021-08-17 10:50 | PM.OP.1 ---
Operative Date/Time/Diagnoses Date of procedure: 08/17/21 Time of procedure: 10:50 Pre-op diagnosis: Left lower abdomen neuropathic pain Post-op diagnosis: same Procedure & Clinicians Procedure: Excisional biopsy of masses of the left lower abdominal wall and partial neurectomy Same procedure as scheduled: Yes Indications: Chronic left abdominal wall pain Surgeon: Danny Hull Anesthesia Type: General Operative Notes Findings: Two abdominal wall masses in the vicinity of pain Questionable endometriosis associated with the smaller mass and abdominal wall Estimated Blood Loss (mL): 20 Procedure in detail: The patient was brought to the operating room and placed on the operating room table. No antibiotics were indicated. The abdomen and left groin were prepped and draped in the usual fashion and a time-out was performed. A 10 cm transverse incision was created over the point of maximal pain which had been marked in preop. This was about 5 cm superior to the pubic symphysis and slightly to the left of midline. Dissection was carried down through the subcutaneous adipose tissue until we reached the anterior sheath. There was a firm, palpable nodular mass attached to the anterior sheath which was roughly 3 cm in diameter. We created an incision lateral and superior to this mass and just under the external oblique aponeurosis a branch of the hypogastric nerve was visualized. This was ligated with a 3-0 Vicryl tie and injected with lidocaine initially. Additionally lidocaine was injected into the tissue planes around this nerve. The nerve was sharply divided just proximal to the tie. Later we injected the area with Exparel. Next we excised the 3 cm mass. There was the arterial bleeder just deep to the mass which was addressed with 3-0 Vicryl ties. We then noted a slightly smaller mass inferior to the 1st mass which demonstrated 1 area of dark discoloration. Upon dissection this ruptured and some dark zamorano fluid was seen suggestive of endometriosis. This mass was excised and sent as mass 2. We saw additional dark tissue in the abdominal wall deep to this mass and again attempts to dissect it resulted in rupture and a small amount of dark fluid was suctioned away. We cauterized the area. No additional dark tissue was noted in the abdominal wall. We irrigated copiously with saline. We observed hemostasis in the field. Specimens: Abdominal wall mass #1 and abdominal wall mass #2 Post-operative Condition: stable Disposition: PACU
[2021-08-17] MEDS: MEPERIDINE 50 MG/ML INJ 12.5 MG IV (10:59)
[2021-08-17] MEDS: ACETAMINOPHEN IV 1,000 MG/100 ML VIAL 400 MG IV (11:15)
[2021-08-17] MEDS: KETOROLAC 30 MG/ML VIAL IV (11:15)
[2021-08-17] MEDS: LORazepam 2 MG/ML INJ 0.5 MG IV (11:15)
[2021-08-17] MEDS: HYDROMORPHONE 2 MG TABLET PO (12:06)
[2021-08-17] MEDS: hydrOXYzine pamoate 25 MG CAPSULE PO (12:06)
--- NOTE | 2021-08-17 12:14 | SUR.PHASEI ---
report given to Melissa PORTER. Pt stabilized after severe headache post op. Pt rated pain 7/10 upon transfer to Phase 2 recovery.
--- NOTE | 2021-08-17 12:54 | SUR.PHASEII ---
Spoke with Dr. Maxwell about pt's pain, MD to see pt at bedside, pt up to BR, steady when up, voided w/o difficulty.
--- NOTE | 2021-08-17 14:32 | SUR.PHASEII ---
Late entry: Dr. Hull spoke at length with pt at bedside, dressing remained c/d/i. Binder in place, ice as well. Quease ease at bedside, though pt's nausea fully resolved, eating cheese stick. Pt wanting pain med changed to Dilaudid, Dr ackerman, changed made. Assisted pt to dress, pt left unit in stable condition.
== END 2021-08-17 13:45 | disposition home or self-care (01) ==
PROVIDERS: PCP Family Medicine; Referring Provider Surgery; Visit Provider Surgery
PROC: (CPT 22900; principal; 2021-08-17 07:45)
DX: N80.8 Other endometriosis (principal)
CPT/HCPCS: 22900 ×2; C9290; J0131; J1100; J1170; J1885; J2060; J2175; J2250; J2405; J2704; J3010

== ENCOUNTER → 2022-07-22 13:14 | Outpatient (CLI) | payer OTHER, SELFPAY ==
[2021-12-13 08:26] VITALS: BMI 35.6
--- NOTE | 2022-07-22 13:15 | DI.CT.S_ITS ---
PROCEDURE: CT ABDOMEN PELVIS W CON INDICATIONS: Pelvic Pain TECHNIQUE: After the administration of oral and intravenous contrast, axial sections were acquired from the lung bases to the pubic symphysis. Coronal and sagittal reformats were performed. For radiation dose reduction, the following was used: automated exposure control, adjustment of mA and/or kV according to patient size. COMPARISON:[facility], CT, PE STUDY (CTA CHEST), 01/09/2014, 9:58. [facility], CT, CT ABDOMEN PELVIS W CON, 07/14/2021, 10:47. [facility], CT, CT ABDOMEN PELVIS W CON, 06/02/2020, 10:22. FINDINGS: Image quality: Excellent. Lung bases: Unremarkable. Heart: No significant findings. ABDOMEN: Liver: Unchanged, with a anterior left lateral hepatic segment subcapsular hemangioma previously seen also in May of 2020. This has subtle peripheral foci of nodular enhancement. Gallbladder: Unremarkable. Biliary ducts: Unremarkable. Pancreas: Unremarkable. Spleen: Unremarkable. Adrenal Glands: Unremarkable. Kidneys and Ureters: Unremarkable. Stomach and Bowel: Stomach, small bowel loops, and colon are unremarkable. Peritoneum: No abnormal intraperitoneal fluid. No free air. Ventral Wall: No hernia. Abdominal Nodes: No retroperitoneal or mesenteric adenopathy by size criteria. Vessels: Aorta and inferior vena cava are normal in size. PELVIS: Pelvic Organs: Unremarkable. Previous supracervical hysterectomy has been performed. Again noted is a small submucosal cervical cyst at approximately the 12 o'clock position measuring approximately 10 mm in maximal dimension. The bilateral ovarian cysts, somewhat larger on the right than the left, have resolved. Bladder: Unremarkable. Pelvic Nodes: No enlarged lymph nodes. Miscellaneous: No inguinal hernias are seen. Bones: Unremarkable. IMPRESSION: Etiology of persistent pelvic pain is not identified. Bilateral adnexal cysts, presumed ovarian in origin, seen 07/14/[address] scanning have resolved. Prior supracervical hysterectomy, stable appearing submucosal 1 cm cervical cyst again noted. A structure within the subcapsular left lateral hepatic segment has been previously noted and it demonstrates imaging characteristics and stability over time indicating benign etiology, almost certainly a benign hepatic hemangioma requiring no follow-up. Dictated by: Ryan Early M.D. on 07/22/2022 at 15:29 Approved by: Ryan Early M.D. on 07/22/2022 at 15:41
== END ==
PROVIDERS: PCP Family Medicine; Referring Provider Obstetrics & Gynecology; Visit Provider Obstetrics & Gynecology
DX: N80.9 Endometriosis, unspecified (principal); R10.2 Pelvic and perineal pain; Z90.710 Acquired absence of both cervix and uterus; N88.8 Other specified noninflammatory disorders of cervix uteri
CPT/HCPCS: 74177; Q9967